=== PATIENT | female | born 1930 | race Caucasian/White ===

== ENCOUNTER 2018-02-16 03:08 | Inpatient (IN) ==
--- NOTE | 2018-02-16 03:25 | Emergency Department Note ---
Disposition Clinical Impression: Acute cholecystitis Abdominal pain Qualifiers: Abdominal location: right upper quadrant Qualified Code(s): R10.11 - Right upper quadrant pain UTI (urinary tract infection) Qualifiers: Urinary tract infection type: site unspecified Hematuria presence: without hematuria Qualified Code(s): N39.0 - Urinary tract infection, site not specified Disposition: Admitted As Inpatient Condition: Fair Time of Disposition: 05:25 General Adult HPI - General Stated complaint: leg swelling abd swelling Time Seen by Provider: 02/16/18 03:15 Source: EMS Mode of arrival: EMS Limitations: no limitations Nursing Notes Reviewed: Yes Vital Signs Reviewed: Yes - History of Present Illness HPI Narrative: Patient is an 87-year-old female who presents to [facility] ED with a chief complaint of difficulty breathing and lower extremity swelling. States that her abdomen hurts and that it is pushing up on her lungs make it hard for her to breathe. States her abdomen has been hurting over the last day. Denies any nausea, vomiting, fever or chills. Patient comes to us from the nursing facility. Sent in by the physician for the worsening difficulty breathing and worsening lower extremity edema. Her current status is DNR CC but states she would like lab work and imaging to figure out what is going on with her abdomen. Patient is normally nonambulatory due to reveals multiple falls and states her left leg cannot support her to walk anymore. She resides at a nursing facility. Denies any prior cardiac history or difficulty with her lungs. States she has had a prior appendectomy and partial hysterectomy. Onset (ago): day(s) (1) Location: abdomen Pain Severity: moderate Quality: aching Consistency: constant Improves with: nothing Worsens with: nothing Associated symptoms: Reports: nausea/vomiting, shortness of breath. Denies: chest pain, cough, fever/chills Treatments Prior to Arrival: none - Related Data Home Medications Medication Instructions Recorded Confirmed Ca/D3/Mag#11/Zinc/Adoption Social Worker/Braden/Bor 1 each PO BID 09/16/16 09/16/16 [Caltrate 600+D Plus Tablet] Ergocalciferol (VITAMIN D2) 400 unit PO DAILY 09/16/16 09/16/16 [Vitamin D] Previous Rx's Medication Instructions Recorded Lisinopril 10 mg PO DAILY #30 tablet 09/18/16 Allergies Allergy/AdvReac Type Severity Reaction Status Date / Time bacitracin Allergy Hives Verified 09/16/16 10:29 [From Neosporin ([id number])] Neomycin Allergy Hives Verified 09/16/16 10:29 [From Neosporin ([id number])] Penicillins Allergy Hives Verified 09/16/16 10:29 polymyxin B Allergy Hives Verified 09/16/16 10:29 [From Neosporin ([id number])] Sulfa (Sulfonamide Allergy SWELLING Verified 09/16/16 10:29 Antibiotics) Tetracycline AdvReac FAINTED Verified 09/16/16 10:29 All systems ED: reviewed and negative except as stated. Past Medical History - Past Medical History Attestation: Yes The following information was validated with the patient. Source: patient Medical history: Reports: GERD, osteoporosis Surgical history: Reports: appendectomy, hysterectomy, knee replacement (right) Psychiatric history: Reports: no psych history - Social History Smoking Status: Never smoker Smokeless Tobacco Status: No Alcohol use: Reports: none Drug use: Reports: none Physical Exam - General Limitations: no limitations General appearance: alert, in no apparent distress - Head Head exam: atraumatic, normocephalic, normal inspection - Eye Eye exam: Present: normal appearance, EOMI - ENT ENT exam: normal exam, normal oropharynx, mucous membranes moist - Neck Neck exam: Present: normal inspection, full ROM, trachea midline - Chest Chest inspection: Present: normal inspection, symmetric chest wall rise - Respiratory Respiratory exam: Present: normal lung sounds bilaterally - Cardiovascular Cardiovascular exam: Present: normal rhythm, tachycardia - Abdominal Exam Abdominal exam: Present: soft, tenderness, distention, diminished bowel sounds Abdominal tenderness: Present: diffuse, moderate - Extremities Exam Extremities exam: Present: normal inspection, full ROM. Absent: tenderness, pedal edema - Back Exam Back exam: Present: normal inspection, full ROM. Absent: tenderness - Neurological Exam Neurological exam: Present: alert, oriented X3 - Psychiatric Psychiatric exam: Present: normal affect, normal mood - Skin Skin exam: Present: warm, dry, intact, normal color Course Course Narrative: Patient seen and examined. Abdominal pain that is causing some difficulty breathing. She is DNR CC but agrees to imaging and lab work. Her abdominal exam does show some distention as well as fullness and pain with palpation diffusely but more so on the right side. Lab work, CT of the abdomen and pelvis ordered. We will go ahead and get a chest x-ray since she has some difficulty breathing as well as an EKG. We will start with 50 g of fentanyl to help with pain and 4 mg Zofran for nausea. - Reevaluation(s) Reevaluation #1: Labwork shows a leukocytosis of 16,000. CT of the abdomen and pelvis shows findings suspicious for acute cholecystitis. She has multiple gallstones as well as pericholecystic fluid. We will go ahead and start a dose of Mefoxin. I discussed with surgeon Dr. Damico who will see the patient in consultation. Patient also has signs of a urinary tract infection. I discussed with hospitalist who has accepted patient for admission. Time: 05:20 Medical Decision Making - Medical Records Medical records reviewed: Yes I reviewed the patient's medical records. - Lab Data Lab results reviewed: Yes I reviewed the patient's lab results. - Radiology Data Radiology results reviewed: Yes I reviewed the patient's radiology results. Abdomen/Pelvis CT 02/16/18 03:17 IMPRESSION: 1. Distended gallbladder, multiple gallstones and pericholecystic edema. Findings suspicious for cholecystitis. 2. Renal stones in bilateral renal pelvis with bilateral hydronephrosis and perinephric edema. Stone in the right renal pelvis measures up to 1 cm. Stone temp. In the left renal pelvis measuring up to 0.6 cm. 3. Bladder platt are slightly thickened - suspicious for cystitis. D/ / West Kaufman MD / West Kaufman MD Interpreting Provider: West Kaufman MD Chest X-Ray 02/16/18 03:18 IMPRESSION: 1. No focal airspace disease. 2. Cardiomegaly. D/ / West Kaufman MD / West Kaufman MD Interpreting Provider: West Kaufman MD - EKG Data EKG #1 EKG attestation: Yes I reviewed and interpreted this EKG. EKG results narrative: EKG done at 318 shows normal sinus rhythm with a rate of [address] elevation or depression. Left axis deviation.
[2018-02-16 03:32] LABS: Bilirubin,Urine Negative (Negative); Blood,Urine Moderate (Negative); Clarity,Urine Turbid (Clear); Color,Urine Yellow (Yellow); Glucose,Urine (UA) Normal (Normal); Ketones,Urine Negative (Negative); Leukocyte Esterase,Urine Large (Negative); Nitrite,Urine Negative (Negative); PH,Urine 6.5 pH Units (5.0-8.0); Protein,Urine 30 mg/dL (Neg-Trace); Specific Gravity,Urine 1.019 (1.010-1.025); Urobilinogen,Urine Normal (Normal)
[2018-02-16 03:32] LABS: Basophils # 0.1 K/mcL (0.0-0.2); Basophils % 0.4 %; Eosinophils # 0.1 K/mcL (0.0-0.6); Eosinophils % 0.3 %; Hematocrit 48.9 % (35.3-44.9); Hemoglobin 15.6 g/dL (11.5-15.4); Immature Granulocytes % 0.8 % (0-4); Lymphocytes # 1.8 K/mcL (0.6-4.6); Lymphocytes % 10.5 %; Mean Corpuscular HGB Conc 31.9 g/dL (31.6-35.5); Mean Corpuscular Hemoglobin 29.3 pg (28.0-33.3); Mean Corpuscular Volume 91.7 fL (83.0-100.0); Mean Platelet Volume 8.7 fL (9.4-12.4); Monocytes # 1.3 K/mcL (0.0-1.3); Monocytes % 7.5 %; Neutrophils # 13.6 K/mcL (1.6-8.9); Platelet Count 258 K/mcL (140-400); Red Blood Count 5.33 M/mcL (3.82-4.97); Red Cell Distribution Width 14.7 % (11.5-14.5); Segmented Neutrophils % 80.5 %
[2018-02-16 03:34] LABS: Bacteria,Urine Many per hpf (None-Few); Squamous Epithelial Cell,Urine Many per lpf (None-Few); WBC,Urine TNTC per hpf (0-3)
--- NOTE | 2018-02-16 03:49 | Emergency Department Note ---
Disposition Clinical Impression: Acute cholecystitis Abdominal pain Qualifiers: Abdominal location: right upper quadrant Qualified Code(s): R10.11 - Right upper quadrant pain UTI (urinary tract infection) Qualifiers: Urinary tract infection type: site unspecified Hematuria presence: without hematuria Qualified Code(s): N39.0 - Urinary tract infection, site not specified Disposition: Admitted As Inpatient Condition: Fair Abdominal Pain HPI - General Chief Complaint: ED Abdominal Pain Stated Complaint: leg swelling abd swelling Time Seen by Provider: 02/16/18 03:15 Source: EMS Mode of arrival: EMS - History of Present Illness Pain Scale: 5 - Related Data Home Medications Medication Instructions Recorded Confirmed Ca/D3/Mag#11/Zinc/Counter Top Assembler/Braden/Bor 1 each PO BID 09/16/16 02/16/18 [Caltrate 600+D Plus Tablet] Ergocalciferol (VITAMIN D2) 400 unit PO DAILY 09/16/16 02/16/18 [Vitamin D] Previous Rx's Medication Instructions Recorded Acetaminophen [Tylenol] 650 mg PO Q6HR PRN tablet 02/19/18 Docusate [Colace] 100 mg PO BID #60 capsule 02/19/18 Furosemide [Lasix] 20 mg PO DAILY PRN tablet 02/19/18 Ondansetron [Zofran] 4 mg IVP Q6H PRN vial 02/19/18 OxyCODONE/APAP 5/325 [Percocet 1 each PO Q6HR PRN 3 Days #10 02/19/18 5/325 MG] tablet Allergies Allergy/AdvReac Type Severity Reaction Status Date / Time bacitracin Allergy Hives Verified 09/16/16 10:29 [From Neosporin ([id number])] Neomycin Allergy Hives Verified 09/16/16 10:29 [From Neosporin ([id number])] Penicillins Allergy Hives Verified 09/16/16 10:29 polymyxin B Allergy Hives Verified 09/16/16 10:29 [From Neosporin ([id number])] Sulfa (Sulfonamide Allergy SWELLING Verified 09/16/16 10:29 Antibiotics) Tetracycline AdvReac FAINTED Verified 09/16/16 10:29 Abdominal Pain PMH - Past Medical History Medical history: Reports: GERD, osteoporosis Female Surgical History: Reports: appendectomy, hysterectomy Psychiatric history: Reports: no psych history - Social History Smoking status: Never smoker Alcohol use: Reports: none Drug use: Reports: none Physical Exam - General Limitations: no limitations General appearance: alert Course Vital Signs Temperature 98.5 F 02/16/18 03:14 Pulse Rate 113 02/16/18 03:14 Respiratory Rate 17 02/16/18 03:14 Blood Pressure 189/100 02/16/18 03:14 O2 Sat by Pulse Oximetry 95 02/16/18 03:14 Temperature 97.6 F 02/22/18 10:52 Pulse Rate 86 02/22/18 10:52 Respiratory Rate 15 02/22/18 10:52 Blood Pressure 125/79 02/22/18 10:52 O2 Sat by Pulse Oximetry 94 02/22/18 10:52 Oxygen Delivery Oxygen Delivery Nasal Cannula Abdominal Pain - Lab Data Result diagrams: 02/21/18 06:39 02/21/18 06:39 Lab Results 02/16/18 02/16/18 02/16/18 Range/Units 03:20 03:20 03:20 WBC 16.9 H (4.3-11.1) K/mcL RBC 5.33 H (3.82-4.97) M/mcL Hgb 15.6 H (11.5-15.4) g/dL Hct 48.9 H (35.3-44.9) % MCV 91.7 (83.0-100.0) fL MCH 29.3 (28.0-33.3) pg MCHC 31.9 (31.6-35.5) g/dL RDW 14.7 H (11.5-14.5) % Plt Count 258 (140-400) K/mcL MPV 8.7 L (9.4-12.4) fL Immature Gran % 0.8 (0-4) % Seg Neutrophils % 80.5 % Lymphocytes % 10.5 % Monocytes % 7.5 % Eosinophils % 0.3 % Basophils % 0.4 % Neutrophils # 13.6 H (1.6-8.9) K/mcL Lymphocytes # 1.8 (0.6-4.6) K/mcL Monocytes # 1.3 (0.0-1.3) K/mcL Eosinophils # 0.1 (0.0-0.6) K/mcL Basophils # 0.1 (0.0-0.2) K/mcL Sodium (136-145) mEq/L Potassium (3.5-5.1) mEq/L Chloride (98-107) mEq/L Carbon Dioxide (23-29) mEq/L BUN (8-23) mg/dL Creatinine (0.60-1.20) mg/dL Est GFR ( Amer) (> 60) Est GFR (Non-Af Amer) (> 60) BUN/Creatinine Ratio (6-26) Glucose (70-105) mg/dL Calculated Osmolality (280-300) Lactic Acid 1.1 (0.5-2.2) mmol/L Calcium (8.6-10.3) mg/dL Total Bilirubin (0.3-1.0) mg/dL Direct Bilirubin (0.0-0.2) mg/dL Indirect Bilirubin (0.0-1.2) mg/dL AST (13-39) Units/L ALT (7-52) Units/L Alkaline Phosphatase (34-104) Units/L Troponin I < 0.03 (< 0.04) ng/mL B-Natriuretic Peptide (Less than 100) pg/mL Serum Total Protein (6.4-8.9) g/dL Albumin (3.5-5.7) g/dL Globulin (2.4-3.5) g/dL Albumin/Globulin Ratio (1.1-2.2) Lipase (11-82) Units/L Urine Color (Yellow) Urine Clarity (Clear) Urine pH (5.0-8.0) pH Units Ur Specific [place] (1.010-1.025) Urine Protein (Neg-Trace) mg/dL Urine Glucose (UA) (Normal) mg/dL Urine Ketones (Negative) mg/dL Urine Blood (Negative) Urine Nitrite (Negative) Urine Bilirubin (Negative) Urine Urobilinogen (Normal) mg/dL Ur Leukocyte Esterase (Negative) Urine Microscopic RBC (0-3) per hpf Urine Microscopic WBC (0-3) per hpf Ur Squamous Epith Cells (None-Few) per lpf Urine Bacteria (None-Few) per hpf Hyaline Casts Urine Yeast Ur Culture Indicated? (NO) 02/16/18 02/16/18 02/16/18 Range/Units 03:20 03:20 03:26 WBC (4.3-11.1) K/mcL RBC (3.82-4.97) M/mcL Hgb (11.5-15.4) g/dL Hct (35.3-44.9) % MCV (83.0-100.0) fL MCH (28.0-33.3) pg MCHC (31.6-35.5) g/dL RDW (11.5-14.5) % Plt Count (140-400) K/mcL MPV (9.4-12.4) fL Immature Gran % (0-4) % Seg Neutrophils % % Lymphocytes % % Monocytes % % Eosinophils % % Basophils % % Neutrophils # (1.6-8.9) K/mcL Lymphocytes # (0.6-4.6) K/mcL Monocytes # (0.0-1.3) K/mcL Eosinophils # (0.0-0.6) K/mcL Basophils # (0.0-0.2) K/mcL Sodium 137 (136-145) mEq/L Potassium 4.5 (3.5-5.1) mEq/L Chloride 103 (98-107) mEq/L Carbon Dioxide 26 (23-29) mEq/L BUN 17 (8-23) mg/dL Creatinine 0.71 (0.60-1.20) mg/dL Est GFR ( Amer) > 60 (> 60) Est GFR (Non-Af Amer) > 60 (> 60) BUN/Creatinine Ratio 24 (6-26) Glucose 178 H (70-105) mg/dL Calculated Osmolality 290 (280-300) Lactic Acid (0.5-2.2) mmol/L Calcium 9.3 (8.6-10.3) mg/dL Total Bilirubin 0.7 (0.3-1.0) mg/dL Direct Bilirubin 0.2 (0.0-0.2) mg/dL Indirect Bilirubin 0.5 (0.0-1.2) mg/dL AST 20 (13-39) Units/L ALT 22 (7-52) Units/L Alkaline Phosphatase 82 (34-104) Units/L Troponin I (< 0.04) ng/mL B-Natriuretic Peptide 37 (Less than 100) pg/mL Serum Total Protein 7.5 (6.4-8.9) g/dL Albumin 4.0 (3.5-5.7) g/dL Globulin 3.5 (2.4-3.5) g/dL Albumin/Globulin Ratio 1.1 (1.1-2.2) Lipase 33 (11-82) Units/L Urine Color Yellow (Yellow) Urine Clarity Turbid A (Clear) Urine pH 6.5 (5.0-8.0) pH Units Ur Specific [place] 1.019 (1.010-1.025) Urine Protein 30 H (Neg-Trace) mg/dL Urine Glucose (UA) Normal (Normal) mg/dL Urine Ketones Negative (Negative) mg/dL Urine Blood Moderate H (Negative) Urine Nitrite Negative (Negative) Urine Bilirubin Negative (Negative) Urine Urobilinogen Normal (Normal) mg/dL Ur Leukocyte Esterase Large H (Negative) Urine Microscopic RBC 5-15 H (0-3) per hpf Urine Microscopic WBC TNTC H (0-3) per hpf Ur Squamous Epith Cells Many H (None-Few) per lpf Urine Bacteria Many H (None-Few) per hpf Hyaline Casts Test Not Performed Urine Yeast Test Not Performed Ur Culture Indicated? NO. A (NO) Attestation Statement - Attestation Attestation: I examined this patient and my medical decision-making was reviewed with the Resident Physician. I agree with the documented findings, disposition and treatment plan as described except to the extent set forth below. Findings consistent with lower extremity edema as well as abdominal edema. We will get basic labs as well as BNP and chest x-ray as well as check urinalysis. Disposition will be pending results of laboratory analyses as well as imaging
[2018-02-16 04:28] LABS: Alanine Aminotransferase 22 Units/L (7-52); Albumin/Globulin Ratio 1.1 (1.1-2.2); Alkaline Phosphatase 82 Units/L (34-104); Aspartate Amino Transferase 20 Units/L (13-39); BUN/Creatinine Ratio 24 (6-26); Bilirubin,Direct 0.2 mg/dL (0.0-0.2); Bilirubin,Indirect 0.5 mg/dL (0.0-1.2); Bilirubin,Total 0.7 mg/dL (0.3-1.0); Blood Urea Nitrogen 17 mg/dL (8-23); Calcium 9.3 mg/dL (8.6-10.3); Carbon Dioxide 26 mEq/L (23-29); Chloride 103 mEq/L (98-107); Globulin 3.5 g/dL (2.4-3.5); Glucose 178 mg/dL (70-105); Lipase 33 Units/L (11-82); Osmolality,Calculated 290 (280-300); Potassium 4.5 mEq/L (3.5-5.1); Sodium 137 mEq/L (136-145); Total Protein 7.5 g/dL (6.4-8.9); eGFR For African Americans > 60 (> 60); eGFR For Non-African Americans > 60 (> 60)
[2018-02-16] MEDS ORDERED: cefTRIAXone 2,000 MG in 0.9 % Sodium Chloride Mini Bag 100 ML IVPB ONE (05:00)
[2018-02-16] MEDS ORDERED: cefOXitin 1,000 MG in 0.9 % Sodium Chloride Mini Bag 100 ML IVPB ONE (05:05)
[2018-02-16] MEDS ORDERED: *HR* FentaNYL (PF) 100 MCG/2 ML VIAL IVP ONE (05:17)
[2018-02-16] MEDS ORDERED: Ondansetron 4 MG/2 ML VIAL IVP ONE (05:18)
[2018-02-16] MEDS ORDERED: Naloxone 0.4 MG/ML INJ IVP PRN (06:21)
[2018-02-16] MEDS ORDERED: OXYCODONE Oral CONC 10 MG/0.5 ML ORAL.SYG SL PRN ×2 (06:21)
[2018-02-16] MEDS ORDERED: Acetaminophen 325 MG TABLET PO PRN (06:21)
[2018-02-16] MEDS ORDERED: Ondansetron 4 MG/2 ML VIAL IVP PRN (06:21)
--- NOTE | 2018-02-16 07:02 | Internal Med History&Physical ---
Date of Encounter: 02/16/18 Time of Encounter: 05:00 Internal Medicine - H&P: HPI Chief complaint: Right upper quadrant discomfort Admitted From: Long-term Nursing Facility Plans for Post Hospital Care: Transfer [facility] [facility] History of present illness: Ms. Rodgers is a 87 year old female sent from long term for right upper quadrant discomfort. 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 Patient said she has right upper quadrant discomfort since yesterday morning. Patient also complaining low fever with chills. Patient denies nausea, vomiting. Patient denies chest pain. Patient has a mild shortness of breath and bilateral leg swelling, but she said it was for a while. In the emergency room, patient was found leukocytosis, CT abdomen shows gallbladder stones with suspect cholecystitis. Patient was also found UTI and bilateral kidney stone with hydronephrosis. Patient denies dysuria, burning, or urgency. On long term transfer documentation, patient has an order off DNR CC. However, patient is AAO 3, I have discussed CODE STATUS with patient. She clearly told me she does not want CPR, but accept intubation, surgery if necessary, antibiotics, and IV fluid. I have placed her CODE STATUS as DNR CCA per patient's wish. Past Med Surg Social Fam HX - Past Medical History Medical history: GERD, osteoporosis Psychiatric history: no psych history - Past Surgical History Surgical History: appendectomy, hysterectomy, knee replacement (right) - Social History Smoking Status: Never smoker Smokeless Tobacco Status: No Alcohol use: none Drug use: none - Family History Father Living Status: Hx Family Cardiac Disorders: No Hx Family Respiratory Disorders: No Hx Family Cancer: Yes Internal Medicine - H&P: Meds Ca/D3/Mag#11/Zinc/Voting Machine Repairer/Braden/Bor [Caltrate 600+D Plus Tablet] 1 each PO BID [History] Ergocalciferol (VITAMIN D2) [Vitamin D] 400 unit PO DAILY 09/16/16 [History] Lisinopril 10 mg PO DAILY #30 tablet 09/18/16 [Rx] 3 Allergy/AdvReac Type Severity Reaction Status Date / Time bacitracin Allergy Hives Verified 09/16/16 10:29 [From Neosporin ([id number])] Neomycin Allergy Hives Verified 09/16/16 10:29 [From Neosporin ([id number])] Penicillins Allergy Hives Verified 09/16/16 10:29 polymyxin B Allergy Hives Verified 09/16/16 10:29 [From Neosporin ([id number])] Sulfa (Sulfonamide Allergy SWELLING Verified 09/16/16 10:29 Antibiotics) Tetracycline AdvReac FAINTED Verified 09/16/16 10:29 All Systems PM: A 10-system review of systems was performed and is negative for pertinent findings except as documented above in the HPI. - Constitutional Vitals: Temp Pulse Resp BP Pulse Ox 98.5 F 90 18 137/61 94 02/16/18 03:14 02/16/18 05:41 02/16/18 05:41 02/16/18 05:41 02/16/18 05:41 General appearance: Present: A&O X 3, no acute distress, answers questions appropriately - Head Head exam: Present: atraumatic, normocephalic - Eye Eye exam: Present: PERRL, conjuntiva pink, sclera anicteric Pupils: Present: PERRL - Neck Neck exam general surgery: Present: supple, trachea midline. Absent: lymphadenopathy - Respiratory Respiratory exam: Present: CTAB. Absent: accessory muscle use, rales, rhonchi, wheezes - Cardiovascular Cardiovascular exam: Present: RRR, +S1, +S2. Absent: diastolic murmur, gallop, rubs, systolic murmur - GI/Abdominal GI/Abdominal exam: Present: normal bowel sounds, soft, tenderness (Tenderness on right upper quadrant, with guarding), no peritoneal signs. Absent: distended - Extremities Exam Extremities exam: Present: pedal edema (bilaterally), warm, radial pulses palpable and symmetrical. Absent: calf tenderness, cyanotic Additional comments: Contracture of left hand and bilateral feet - Neurological Exam Neurological exam: Present: CN II-XII intact, oriented X3, no focal deficits. Absent: pronater drift, facial droop, speech deficit - Skin Skin exam: Present: dry, intact Internal Med - H&P Results - Labs CBC & Chem 7: 02/16/18 03:20 02/16/18 03:20 - Assessment and plan (1) Cholelithiasis Current Visit: Yes Status: Acute Assessment and plan: Patient has right upper quadrant discomfort, chills, leukocytosis. Tenderness on exam. CT abdomen shows cholecystitis with gallstone. - Place patient on nothing by mouth, IV fluid, pain medication as needed - Place patient on Cipro and Flagyl IV - Consult surgery for further management. Qualifiers: Cholelithiasis location: gallbladder Cholecystitis presence: with cholecystitis Cholecystitis acuity: acute Biliary obstruction: without biliary obstruction Qualified Code(s): K80.00 - Calculus of gallbladder with acute cholecystitis without obstruction (2) Renal stone Current Visit: Yes Status: Acute Assessment and plan: Patient has bilateral renal pelvis stone with hydronephrosis. Renal function is wnl. Will consult urology. (3) Hydronephrosis Current Visit: Yes Status: Acute Assessment and plan: Management as above. Antibiotic to cover UTI. Qualifiers: Hydronephrosis type: with renal calculous obstruction Qualified Code(s): N13.2 - Hydronephrosis with renal and ureteral calculous obstruction (4) Acute cholecystitis Current Visit: Yes Status: Acute Assessment and plan: Management as above (5) UTI (urinary tract infection) Current Visit: Yes Status: Acute Assessment and plan: Urinalysis shows UTI. Patient is on Cipro and Flagyl. Follow urine culture. Qualifiers: Urinary tract infection type: site unspecified Hematuria presence: without hematuria Qualified Code(s): N39.0 - Urinary tract infection, site not specified (6) DVT prophylaxis Current Visit: No Status: Acute Assessment and plan: EPCD (7) Hypertension Current Visit: No Status: Chronic Assessment and plan: Continue home medications Qualifiers: Hypertension type: essential hypertension Qualified Code(s): I10 - Essential (primary) hypertension (8) Leg swelling Current Visit: Yes Status: Acute Assessment and plan: Bilateral leg swelling with mild shortness of breath. Need to rule out CHF. Chest x-ray shows no signs of pulmonary congestion. Will check BNP and echocardiogram. - Time Spent With Patient Total time spent is greater than 50% in coordination of care (as documented) at patient's floor/unit and/or counseling patient:
--- NOTE | 2018-02-16 10:41 | Urology - Consult Note ---
Date of Encounter: 02/16/18 Time of Encounter: 12:59 - Assessment and Plan (1) Renal stones Current Visit: Yes Status: Acute (2) Hydronephrosis Current Visit: Yes Status: Acute Assessment and plan: I personally reviewed the CT images. It appears that the bilateral renal pelvis stones are likely causing some obstruction indicated by the hydronephrosis. This is potentially a reason for her recent illness. General surgery consult is pending and need to also consider cholecystitis as a separate source of her recent illness. I feel the approach for the renal pelvis stones and hydronephrosis is to proceed with bilateral ureteral stent placement which would then require a staged bilateral ureteroscopic stone extraction in the future. The patient appears stable at this time and I do not feel that the procedure is urgent. We will await the Gen. surgery consultation because if they feel she requires surgical intervention for the cholecystitis will likely perform a concomitant procedure if possible. We also briefly discussed the fact that she is DNR. A palliative nonprocedural approach to these stones would place her at increased risk for urosepsis, significant morbidity and . Qualifiers: Hydronephrosis type: with renal calculous obstruction Qualified Code(s): N13.2 - Hydronephrosis with renal and ureteral calculous obstruction Urology CN:HPI Consult date: 02/16/18 Reason for consult Urology: Hydronephrosis History of present illness: pt with a hx of urolithiasis. stone extraction a few years ago by Dr Almanzar. presents to ER with acute illness, abd pain. minimal LUTS. CT scan at admission reveals bilateral renal pelvis stones with bilateral hydronephrosis. She also has evidence of cholecystitis. White cell count to 17,000. She has complained of malaise as well. Past Med Surg Social Fam HX - Past Medical History Medical history: GERD, osteoporosis Psychiatric history: no psych history - Past Surgical History Surgical History: appendectomy, hysterectomy, knee replacement (right) - Social History Smoking Status: Never smoker Smokeless Tobacco Status: No Alcohol use: none Drug use: none - Family History Father Living Status: Hx Family Cardiac Disorders: No Hx Family Respiratory Disorders: No Hx Family Cancer: Yes Medications and Allergies Ca/D3/Mag#11/Zinc/Final Inspector And Tester/Braden/Bor [Caltrate 600+D Plus Tablet] 1 each PO BID [History] Ergocalciferol (VITAMIN D2) [Vitamin D] 400 unit PO DAILY 09/16/16 [History] 3 Allergy/AdvReac Type Severity Reaction Status Date / Time bacitracin Allergy Hives Verified 09/16/16 10:29 [From Neosporin ([id number])] Neomycin Allergy Hives Verified 09/16/16 10:29 [From Neosporin ([id number])] Penicillins Allergy Hives Verified 09/16/16 10:29 polymyxin B Allergy Hives Verified 09/16/16 10:29 [From Neosporin ([id number])] Sulfa (Sulfonamide Allergy SWELLING Verified 09/16/16 10:29 Antibiotics) Tetracycline AdvReac FAINTED Verified 09/16/16 10:29 Review of Systems - Constitutional fatigue, fever(s), malaise - EENT Nose, mouth and throat: dizziness - Cardiovascular no chest pain - Respiratory no cough - Gastrointestinal abdominal pain, nausea - Genitourinary Genitourinary: hematuria, no dysuria - Musculoskeletal back pain - Integumentary no erythema - Neurological no confusion - Psychiatric as per HPI, no anxiety - Hematologic/Lymphatic no easy bleeding Exam Initial Vital Signs Temp Pulse Resp BP Pulse Ox 98.5 F 113 17 189/100 95 02/16/18 03:14 02/16/18 03:14 02/16/18 03:14 02/16/18 03:14 02/16/18 03:14 - General physical appearance Present: no distress, chronically ill - Eyes Present: PERRL, conjunctiva is clear - ENT Present: normal nares, no hearing loss - Neck Present: no masses, no lymphadenopathy - Respiratory Present: normal respiratory effort - Cardiovascular Cardiovascular exam IM: RRR - Abdomen Abdomen: Present: soft. Absent: masses, suprapubic tenderness - Integumentary Present: no rash - Neurologic Present: normal coordination. Absent: disoriented, confused Urology Results - Labs 02/16/18 03:20 02/16/18 03:20 Abnormal lab results WBC 16.9 K/mcL (4.3-11.1) H 02/16/18 03:20 RBC 5.33 M/mcL (3.82-4.97) H 02/16/18 03:20 Hgb 15.6 g/dL (11.5-15.4) H 02/16/18 03:20 Hct 48.9 % (35.3-44.9) H 02/16/18 03:20 RDW 14.7 % (11.5-14.5) H 02/16/18 03:20 MPV 8.7 fL (9.4-12.4) L 02/16/18 03:20 Neutrophils # 13.6 K/mcL (1.6-8.9) H 02/16/18 03:20 Glucose 178 mg/dL (70-105) H 02/16/18 03:20 Urine Clarity Turbid (Clear) A 02/16/18 03:26 Urine Protein 30 mg/dL (Neg-Trace) H 02/16/18 03:26 Urine Blood Moderate (Negative) H 02/16/18 03:26 Ur Leukocyte Esterase Large (Negative) H 02/16/18 03:26 Urine Microscopic RBC 5-15 per hpf (0-3) H 02/16/18 03:26 Urine Microscopic WBC TNTC per hpf (0-3) H 02/16/18 03:26 Ur Squamous Epith Cells Many per lpf (None-Few) H 02/16/18 03:26 Urine Bacteria Many per hpf (None-Few) H 02/16/18 03:26 Ur Culture Indicated? NO. (NO) A 02/16/18 03:26 All other labs normal. Consult Discharge Plan - Plan Referrals: NONE,PCP [Primary Care Provider] -
--- NOTE | 2018-02-16 11:57 | Internal Med Progress Note ---
Date of Encounter: 02/16/18 Time of Encounter: 10:20 - Assessment and plan (1) Acute cholecystitis Current Visit: Yes Status: Acute Assessment and plan: CT abdomen shows cholecystitis with gallstone. NPO for now waiting on surgery eval Pt would like to go for surgery if she needs she may get benefit with per cutaneous cath drainage will talk to surgery about this cont empirical abx Cipro and Flagyl (2) Cholelithiasis Current Visit: Yes Status: Acute Qualifiers: Cholelithiasis location: gallbladder Cholecystitis presence: with cholecystitis Cholecystitis acuity: acute Biliary obstruction: without biliary obstruction Qualified Code(s): K80.00 - Calculus of gallbladder with acute cholecystitis without obstruction (3) DVT prophylaxis Current Visit: No Status: Acute Assessment and plan: EPCD (4) Hypertension Current Visit: No Status: Chronic Assessment and plan: stable and well controlled with no meds Qualifiers: Hypertension type: essential hypertension Qualified Code(s): I10 - Essential (primary) hypertension (5) UTI (urinary tract infection) Current Visit: Yes Status: Acute Assessment and plan: Urinalysis shows UTI Patient is on Cipro and Flagyl Follow urine culture. Qualifiers: Urinary tract infection type: site unspecified Hematuria presence: without hematuria Qualified Code(s): N39.0 - Urinary tract infection, site not specified (6) Renal stone Current Visit: Yes Status: Acute Assessment and plan: Patient has bilateral renal pelvis stone with hydronephrosis. Renal function is wnl. Urology consulted (7) Hydronephrosis Current Visit: Yes Status: Acute Assessment and plan: Antibiotic to cover UTI Cont ureña Qualifiers: Hydronephrosis type: with renal calculous obstruction Qualified Code(s): N13.2 - Hydronephrosis with renal and ureteral calculous obstruction (8) Leg swelling Current Visit: Yes Status: Acute Assessment and plan: Bilateral leg swelling with mild shortness of breath. Need to rule out CHF. Chest x-ray shows no signs of pulmonary congestion. Echo -P - Time Spent With Patient Total time spent is greater than 50% in coordination of care (as documented) at patient's floor/unit and/or counseling patient: - Subjective Interval history: Ms. Rodgers is a 87 year old female sent from skilled nursing for right upper quadrant discomfort. 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 Patient said she has right upper quadrant discomfort since yesterday morning. Patient also complaining low fever with chills. Patient has a mild shortness of breath and bilateral leg swelling, but she said it was for a while. In the emergency room, patient was found leukocytosis, CT abdomen shows gallbladder stones with suspect cholecystitis. Patient was also found UTI and bilateral kidney stone with hydronephrosis. Patient denies dysuria, burning, or urgency. Pt states she still has RUQ abd pain. She denied any N/V. She is alert, awake and O x 3. She would like to go for surgery if she needs. - Constitutional Vitals: Temp Pulse Resp BP Pulse Ox 98.7 F 89 20 134/63 96 02/16/18 09:02 02/16/18 09:02 02/16/18 09:02 02/16/18 09:02 02/16/18 09:02 General appearance: Present: A&O X 3, no acute distress, answers questions appropriately - Head Head exam: Present: atraumatic, normal inspection - Neck Neck exam general surgery: Present: supple - Respiratory Respiratory exam: Present: decreased breath sounds. Absent: rales, respiratory distress, rhonchi, wheezes - Cardiovascular Cardiovascular exam: Present: +S1, +S2. Absent: tachycardia - GI/Abdominal GI/Abdominal exam: Present: normal bowel sounds, soft, tenderness (RUQ tenderness). Absent: rebound, rigid - Extremities Exam Extremities exam: Present: pedal edema (2+). Absent: calf tenderness, tenderness - Back Exam Back exam: Absent: CVA tenderness (L), CVA tenderness (R) - Neurological Exam Neurological exam: Present: alert, oriented X3 Internal Medicine: Result - Labs CBC & Chem 7: 02/16/18 03:20 02/16/18 03:20 Consult Discharge Plan - Plan Referrals: NONE,PCP [Primary Care Provider] -
[2018-02-16] MEDS: D5% in 0.45% NACL 1,000 ML IVC SCH (12:40)
[2018-02-16] MEDS: MetroNIDAZOLE 500 MG/100 ML 500 MG/100 ML BAG IVPB SCH ×2 (14:26→16:32)
--- NOTE | 2018-02-16 17:30 | General Surgery Consult Note ---
Date of Encounter: 02/16/18 Time of Encounter: 13:30 History of Present Illness Reason for consult: abdominal pain Requesting physician: Krystal Hernandez History of present illness: Surgical consult placed to see this 87-year-old resident of a local [facility] after being transferred to [facility] ED for further evaluation difficulty breathing and lower extremity swelling. Patient was also complaining of abdominal pain which was exacerbating her difficulty in breathing. Despite the pain, the patient denied any nausea, vomiting, fevers, or chills. Laboratories were notable for leukocytosis of 16.9, hemoglobin 15.6, hematocrit 48.9. Neutrophils 13.6%. Electrolytes, BUN, creatinine were within normal limits. Lactic acid 1.1; bilirubin and LFTs within normal limits. CT abdomen and pelvis was notable for partial atelectasis of bilateral lower lobe; distended gallbladder with gallstones, borderline gallbladder wall thickening and trace pericholecystic edema. The patient has significant bilateral renal stones as well as bilateral hydronephrosis and perinephric edema. The patient is restricted to her bed; there is a history of multiple falls and she is no longer active out of bed. It is noted that the patient's CODE STATUS is DNR CC The patient is awake, alert, and mentally intact despite the generalized degeneration/deconditioning of her body Surgical history includes appendectomy, partial hysterectomy, right total knee Allergies include Neosporin, neomycin, polymyxin (from [id number]); all "cillins". Sulfa, tetracycline Physical examination: Elderly frail female resting comfortably in her hospital bed. At the time of my bedside visit, the patient indicates that her symptoms at the time of presentation to the emergency department have improved. Skin is warm, without obvious jaundice. Bilateral lower extremity edema is evident Lungs: Clear; inspiration is limited but not apparently due to pain Cardiac: Regular rate and did not detect any murmurs Abdomen: Significant tenderness right upper quadrant subcostal midclavicular line consistent with gallbladder tenderness. Active bowel sounds were noted. CT abdomen/pelvis was reviewed with [facility]. On this review, the pericholecystic fluid was not readily detected as described in the dictated report. The left hydronephrosis appeared more pronounced than the right. No obvious perinephric stranding but stranding at the left renal hilum and proximal ureter. USGB had been ordered and completed since my bedside visit wih the patient. These images were also reviewed with [facility]. Stones and minimal wall thickening was identified but no clear-cut pericholecystic fluid was identified. A complete dictation is still pending. Following examination of the patient and obtaining historical details, lengthy discussion ensued with the patient and her daughter who was in attendance. Surgical intervention such as cholecystectomy would necessitate the patient be intubated and anesthetized. The patient's markedly debilitated state increases the risk of respiratory failure, postoperative pneumonia and prolonged mechanical ventilation. Other risks include hemorrhage, infection, intra- abdominal abscess, injury to adjacent ducts, vessels, organs, or bowel; cardiac dysrhythmia, GA; and stroke. The patient had previously established her CODE STATUS as DNR CC. This was discussed in detail as it is possible to provide comfort care without surgery. Alternative to cholecystectomy includes cholecystostomy tube. I encouraged the patient and her granddaughter to discuss the treatment options with the patient to determine/decide how she wishes to proceed. An 87 yo does not typically tolerate the stresses and fluid shifts related to surgery and post op recovery could be protracted. These interventions may be beyond what the patient wishes to undergo and could result in her . In addition to the hepatobiliary findings are the bilateral renal findings. I have spoken to Dr Paez, [facility], who has evaluated the patient's bilateral nephrolithiasis. An HB scan has been recommended by [facility]. This will be ordered for the AM. Further discussion with the patient and Dr Paez is planned following completion of the HB scan. Past Med Surg Social Fam HX - Past Medical History Medical history: GERD, osteoporosis Psychiatric history: no psych history - Past Surgical History Surgical History: appendectomy, hysterectomy, knee replacement (right) - Social History Smoking Status: Never smoker Smokeless Tobacco Status: No Alcohol use: none Drug use: none - Family History Father Living Status: Hx Family Cardiac Disorders: No Hx Family Respiratory Disorders: No Hx Family Cancer: Yes Medications and Allergies Ca/D3/Mag#11/Zinc/Client Strategist/Braden/Bor [Caltrate 600+D Plus Tablet] 1 each PO BID [History] Ergocalciferol (VITAMIN D2) [Vitamin D] 400 unit PO DAILY 09/16/16 [History] 3 Allergy/AdvReac Type Severity Reaction Status Date / Time bacitracin Allergy Hives Verified 09/16/16 10:29 [From Neosporin ([id number])] Neomycin Allergy Hives Verified 09/16/16 10:29 [From Neosporin ([id number])] Penicillins Allergy Hives Verified 09/16/16 10:29 polymyxin B Allergy Hives Verified 09/16/16 10:29 [From Neosporin ([id number])] Sulfa (Sulfonamide Allergy SWELLING Verified 09/16/16 10:29 Antibiotics) Tetracycline AdvReac FAINTED Verified 09/16/16 10:29 Review of Systems All systems PM: The remainder of the systems were reviewed and are negative General Surgery Exam Initial Vital Signs Temp Pulse Resp BP Pulse Ox 98.5 F 113 17 189/100 95 02/16/18 03:14 02/16/18 03:14 02/16/18 03:14 02/16/18 03:14 02/16/18 03:14 Exam Initial Vital Signs Temp Pulse Resp BP Pulse Ox 98.5 F 113 17 189/100 95 02/16/18 03:14 02/16/18 03:14 02/16/18 03:14 02/16/18 03:14 02/16/18 03:14 Results - Labs 02/16/18 03:20 02/16/18 03:20 Abnormal lab results WBC 16.9 K/mcL (4.3-11.1) H 02/16/18 03:20 RBC 5.33 M/mcL (3.82-4.97) H 02/16/18 03:20 Hgb 15.6 g/dL (11.5-15.4) H 02/16/18 03:20 Hct 48.9 % (35.3-44.9) H 02/16/18 03:20 RDW 14.7 % (11.5-14.5) H 02/16/18 03:20 MPV 8.7 fL (9.4-12.4) L 02/16/18 03:20 Neutrophils # 13.6 K/mcL (1.6-8.9) H 02/16/18 03:20 Glucose 178 mg/dL (70-105) H 02/16/18 03:20 Urine Clarity Turbid (Clear) A 02/16/18 03:26 Urine Protein 30 mg/dL (Neg-Trace) H 02/16/18 03:26 Urine Blood Moderate (Negative) H 02/16/18 03:26 Ur Leukocyte Esterase Large (Negative) H 02/16/18 03:26 Urine Microscopic RBC 5-15 per hpf (0-3) H 02/16/18 03:26 Urine Microscopic WBC TNTC per hpf (0-3) H 02/16/18 03:26 Ur Squamous Epith Cells Many per lpf (None-Few) H 02/16/18 03:26 Urine Bacteria Many per hpf (None-Few) H 02/16/18 03:26 Ur Culture Indicated? NO. (NO) A 02/16/18 03:26 All other labs normal. Consult Discharge Plan - Plan Referrals: NONE,PCP [Primary Care Provider] -
--- NOTE | 2018-02-16 20:35 | Electrocardiograph Report ---
[address] [address] Test Date: 2018-02-16 Pat Name: Carolina Rodgers Department: [id number] Room: 3B Gender: F Shank Taper: YONI : 1930 Requested By: Krystal Hernandez Order Number: [id number] Reading MD: Jose Villegas Measurements Intervals [place] Rate: 97 P: 44 MO: 209 QRS: -40 QRSD: 88 T: 26 QT: 355 QTc: 409 Interpretive Statements SINUS RHYTHM MARKED LEFT AXIS DEVIATION BASELINE ARTIFACT Electronically Signed On 02-16-2018 20:33:38 EDT by Jose Villegas
[2018-02-17] MEDS: MetroNIDAZOLE 500 MG/100 ML 500 MG/100 ML BAG IVPB SCH ×4 (00:38→23:37)
[2018-02-17] MEDS: D5% in 0.45% NACL 1,000 ML IVC SCH ×2 (03:10→22:35)
[2018-02-17 08:06] LABS: Basophils # 0.1 K/mcL (0.0-0.2); Basophils % 0.3 %; Eosinophils % 0.2 %; Hematocrit 37.2 % (35.3-44.9); Lymphocytes # 1.8 K/mcL (0.6-4.6); Mean Corpuscular HGB Conc 33.1 g/dL (31.6-35.5); Mean Corpuscular Hemoglobin 31.1 pg (28.0-33.3); Mean Corpuscular Volume 93.9 fL (83.0-100.0); Mean Platelet Volume 9.2 fL (9.4-12.4); Monocytes # 2.1 K/mcL (0.0-1.3); Monocytes % 10.5 %; Neutrophils # 15.5 K/mcL (1.6-8.9); Platelet Count 224 K/mcL (140-400); Red Blood Count 3.96 M/mcL (3.82-4.97); Red Cell Distribution Width 14.6 % (11.5-14.5)
[2018-02-17 09:25] LABS: Hemoglobin 12.3 g/dL (11.5-15.4)
[2018-02-17 10:04] LABS: Alanine Aminotransferase 31 Units/L (7-52); Albumin 2.7 g/dL (3.5-5.7); Alkaline Phosphatase 56 Units/L (34-104); Aspartate Amino Transferase 23 Units/L (13-39); BUN/Creatinine Ratio 26 (6-26); Blood Urea Nitrogen 22 mg/dL (8-23); Calcium 8.1 mg/dL (8.6-10.3); Carbon Dioxide 25 mEq/L (23-29); Chloride 104 mEq/L (98-107); Globulin 2.6 g/dL (2.4-3.5); Glucose 181 mg/dL (70-105); Osmolality,Calculated 286 (280-300); Potassium 3.4 mEq/L (3.5-5.1); Sodium 134 mEq/L (136-145); Total Protein 5.3 g/dL (6.4-8.9); eGFR For African Americans > 60 (> 60); eGFR For Non-African Americans > 60 (> 60)
--- NOTE | 2018-02-17 14:47 | General Surgery Progress Note ---
Date of Encounter: 02/17/18 Time of Encounter: 12:50 Subjective Patient reports: still having pain Narrative: General Surgery Persistent right upper quadrant abdominal pain and tenderness. Maximum temperature 99.5; currently 98.7, pulse 85, respirations 14, blood pressure 130/62. SPO2 on 2 L/m nasal cannula 97% HB scan completed this morning was reviewed with [facility]. Findings include radiotracer seen within the liver and biliary tree; activity seen within the small bowel but not within the gallbladder. This is consistent with acute obstruction of the cystic duct or acute cholecystitis. The patient does not wish to risk intubation or prolonged mechanical ventilation. She is aware that this precludes cholecystectomy. Cholecystostomy tube is therefore recommended. I have discussed this with Dr. Awais Rizvi, [facility] Payton Lakhani, PRINTING MECHANIST aware. Dr Alberto Paez also informed Objective Vital Signs - Last 8 Hours Temp Pulse Resp BP Pulse Ox 02/17/18 11:20 98.7 F 85 14 130/62 97 02/17/18 07:14 98.9 F 78 14 92/53 95 Intake and Output 02/16/18 02/17/18 02/17/18 23:59 07:59 15:59 Intake Total 1500 / 1500 100 / 100 Balance 1500 / 1500 100 / 100 Intake: IV Fluids 1500 / 1500 100 / 100 D5% And 0.45% Nacl 1000 Ml Bag 1000 / 1000 1,000 ML @ 90 mls/hr IVC . Q11H7M YADIRA Rx#:[id number] Cipro Premix 400 MG/200 ML 400 400 / 400 mg In 200 ml @ 200 mls/hr IVPB Q12HR YADIRA Rx#:[id number] Flagyl Premix 500 MG/100 ML 500 100 / 100 100 / 100 mg In 100 ml @ 100 mls/hr IVPB Q8HR YADIRA Rx#:[id number] Oral 0 / 0 Other: Meal NPO Stool Size Smear Stool Consistency soft Stool Characteristics Normal for Patient Stool Color Brown # Urine Diapers 1 # Bowel Movements 1 Weight 65 kg Blood Glucose* 142 Patient Weight 02/17/18 23:59 Weight 65 kg - Labs 02/17/18 07:18 02/17/18 07:18 Diabetes panel 02/17/18 Range/Units 07:18 Sodium 134 L (136-145) mEq/L Potassium 3.4 L (3.5-5.1) mEq/L Chloride 104 (98-107) mEq/L Carbon Dioxide 25 (23-29) mEq/L BUN 22 (8-23) mg/dL Creatinine 0.86 (0.60-1.20) mg/dL Glucose 181 H (70-105) mg/dL Calcium 8.1 L (8.6-10.3) mg/dL AST 23 (13-39) Units/L ALT 31 (7-52) Units/L Alkaline Phosphatase 56 (34-104) Units/L Albumin 2.7 L (3.5-5.7) g/dL Calcium panel 02/17/18 Range/Units 07:18 Calcium 8.1 L (8.6-10.3) mg/dL Albumin 2.7 L (3.5-5.7) g/dL Pituitary panel 02/17/18 Range/Units 07:18 Sodium 134 L (136-145) mEq/L Potassium 3.4 L (3.5-5.1) mEq/L Chloride 104 (98-107) mEq/L Carbon Dioxide 25 (23-29) mEq/L BUN 22 (8-23) mg/dL Creatinine 0.86 (0.60-1.20) mg/dL Glucose 181 H (70-105) mg/dL Calcium 8.1 L (8.6-10.3) mg/dL Adrenal panel 02/17/18 Range/Units 07:18 Sodium 134 L (136-145) mEq/L Potassium 3.4 L (3.5-5.1) mEq/L Chloride 104 (98-107) mEq/L Carbon Dioxide 25 (23-29) mEq/L BUN 22 (8-23) mg/dL Creatinine 0.86 (0.60-1.20) mg/dL Glucose 181 H (70-105) mg/dL Calcium 8.1 L (8.6-10.3) mg/dL Total Bilirubin 1.0 (0.3-1.0) mg/dL AST 23 (13-39) Units/L ALT 31 (7-52) Units/L Alkaline Phosphatase 56 (34-104) Units/L Albumin 2.7 L (3.5-5.7) g/dL Consult Discharge Plan - Plan Referrals: NONE,PCP [Primary Care Provider] -
[2018-02-17 14:49] LABS: INR 1.4; Prothrombin Time 15.6 Seconds (9.4-12.1)
--- NOTE | 2018-02-17 16:46 | Urology Progress Note ---
Date of Encounter: 02/17/18 Time of Encounter: 16:43 - Assessment and Plan (1) Renal stones Current Visit: Yes Status: Acute (2) Hydronephrosis Current Visit: Yes Status: Acute Assessment and plan: Discussed the case with Dr. Damico. No further plans for general surgery intervention. I again discussed with the patient proceeding with bilateral ureteral stent placement if she desired intervention for the renal/proximal ureteral stones. Per my conversation with her and her granddaughter yesterday, they were going to consider observation because of her comorbidities and DNR status. She wants to avoid general anesthesia. Future kidney stone extraction would require general anesthesia. We again discussed that the stones could cause urosepsis in significant illness in the future. At this point she is willing to accept this risk. We will likely observe but we will rediscuss tomorrow. Qualifiers: Hydronephrosis type: with renal calculous obstruction Qualified Code(s): N13.2 - Hydronephrosis with renal and ureteral calculous obstruction Progress Note Subjective: still having pain Narrative: Patient states she does not feel well. She has pain under her right rib cage. Gallbladder tube placed today by IR. Reports no flank discomfort consistent with kidney stone. Objective Initial Vital Signs Temp Pulse Resp BP Pulse Ox 98.5 F 113 17 189/100 95 02/16/18 03:14 02/16/18 03:14 02/16/18 03:14 02/16/18 03:14 02/16/18 03:14 - General physical appearance Present: no distress - Additional Exam CARLOS tube in right aspect of abdomen draining clear fluid - Labs 02/17/18 07:18 02/17/18 07:18 Diabetes panel 02/17/18 Range/Units 07:18 Sodium 134 L (136-145) mEq/L Potassium 3.4 L (3.5-5.1) mEq/L Chloride 104 (98-107) mEq/L Carbon Dioxide 25 (23-29) mEq/L BUN 22 (8-23) mg/dL Creatinine 0.86 (0.60-1.20) mg/dL Glucose 181 H (70-105) mg/dL Calcium 8.1 L (8.6-10.3) mg/dL AST 23 (13-39) Units/L ALT 31 (7-52) Units/L Alkaline Phosphatase 56 (34-104) Units/L Albumin 2.7 L (3.5-5.7) g/dL Calcium panel 02/17/18 Range/Units 07:18 Calcium 8.1 L (8.6-10.3) mg/dL Albumin 2.7 L (3.5-5.7) g/dL Pituitary panel 02/17/18 Range/Units 07:18 Sodium 134 L (136-145) mEq/L Potassium 3.4 L (3.5-5.1) mEq/L Chloride 104 (98-107) mEq/L Carbon Dioxide 25 (23-29) mEq/L BUN 22 (8-23) mg/dL Creatinine 0.86 (0.60-1.20) mg/dL Glucose 181 H (70-105) mg/dL Calcium 8.1 L (8.6-10.3) mg/dL Adrenal panel 02/17/18 Range/Units 07:18 Sodium 134 L (136-145) mEq/L Potassium 3.4 L (3.5-5.1) mEq/L Chloride 104 (98-107) mEq/L Carbon Dioxide 25 (23-29) mEq/L BUN 22 (8-23) mg/dL Creatinine 0.86 (0.60-1.20) mg/dL Glucose 181 H (70-105) mg/dL Calcium 8.1 L (8.6-10.3) mg/dL Total Bilirubin 1.0 (0.3-1.0) mg/dL AST 23 (13-39) Units/L ALT 31 (7-52) Units/L Alkaline Phosphatase 56 (34-104) Units/L Albumin 2.7 L (3.5-5.7) g/dL Consult Discharge Plan - Plan Referrals: NONE,PCP [Primary Care Provider] -
--- NOTE | 2018-02-17 20:06 | Internal Med Progress Note ---
Date of Encounter: 02/17/18 Time of Encounter: 14:00 - Assessment and plan (1) Hypertension Current Visit: Yes Status: Chronic Assessment and plan: Stable. Chronic. No antihypertensives. Qualifiers: Hypertension type: essential hypertension Qualified Code(s): I10 - Essential (primary) hypertension (2) Acute cholecystitis Current Visit: Yes Status: Acute Assessment and plan: After discussion with surgeon, patient has declined surgery due to increased risks. Patient will have a cholecystostomy tube placed by IR tomorrow. Nothing by mouth after midnight Continue Cipro and Flagyl. (3) UTI (urinary tract infection) Current Visit: Yes Status: Acute Assessment and plan: Urinalysis indicative of UTI Patient is on Cipro and Flagyl Follow urine culture, ordered and pending Qualifiers: Urinary tract infection type: site unspecified Hematuria presence: without hematuria Qualified Code(s): N39.0 - Urinary tract infection, site not specified (4) Cholelithiasis Current Visit: Yes Status: Acute Assessment and plan: CT abdomen shows cholecystitis with gallstone. Plan as above. Qualifiers: Cholelithiasis location: gallbladder Cholecystitis presence: with cholecystitis Cholecystitis acuity: acute Biliary obstruction: without biliary obstruction Qualified Code(s): K80.00 - Calculus of gallbladder with acute cholecystitis without obstruction (5) Renal stone Current Visit: Yes Status: Acute Assessment and plan: Patient with bilateral renal pelvis stones and hydronephrosis. Serum creatinine 0.86, GFR is greater than 60. Urology has seen the patient Urology consulted, patient has decided not to proceed with bilateral ureteral stents due to risks, comorbidities, and DNR status. Urology continues to follow, I appreciate their recommendations and consultations. They will speak patient again tomorrow. (6) Hydronephrosis Current Visit: Yes Status: Acute Assessment and plan: Plan as above. Qualifiers: Hydronephrosis type: with renal calculous obstruction Qualified Code(s): N13.2 - Hydronephrosis with renal and ureteral calculous obstruction (7) Leg swelling Current Visit: Yes Status: Acute Assessment and plan: Bilateral lower extremity edema, patient states is normal for her. She denies any increase in pain or edema. Patient has dropfoot bilaterally. She reports that she has been bedbound for about the last year. Echocardiogram shows LVEF of 60-65% with mild LV DD, mild TR. Chest x-ray is negative for signs of pulmonary congestion. Continue to monitor. Labs are stable and within normal limits, will give patient a small dose of by mouth Lasix tomorrow after procedure. (8) DVT prophylaxis Current Visit: No Status: Acute Assessment and plan: SCDs are ordered. - Time Spent With Patient Total time spent is greater than 50% in coordination of care (as documented) at patient's floor/unit and/or counseling patient: less than 15 minutes - Subjective Interval history: Patient was seen and assessed at bedside at 1400. Patient is pleasant, alert, awake and oriented. She answers questions appropriately and her mentation is clear. Patient reports that as long as she is still her abdominal pain is manageable. She denies need for further pain management. She denies headache or blurred vision, no chest pain or shortness of breath. No nausea vomiting or diarrhea. - Constitutional Vitals: Temp Pulse Resp BP Pulse Ox 97.4 F L 80 14 120/79 94 02/17/18 15:34 02/17/18 15:34 02/17/18 15:34 02/17/18 15:34 02/17/18 15:34 General appearance: Present: cooperative, A&O X 3, pleasant, no acute distress, answers questions appropriately - Head Head exam: Present: atraumatic, normal inspection, normocephalic - Eye Eye exam: Present: normal appearance, conjuntiva pink, sclera anicteric Pupils: Present: PERRL - Neck Neck exam general surgery: Present: supple, trachea midline. Absent: lymphadenopathy - Respiratory Respiratory exam: Present: decreased breath sounds, CTAB. Absent: accessory muscle use, chest wall tenderness, rales, respiratory distress, rhonchi, wheezes - Cardiovascular Cardiovascular exam: Present: RRR, +S1, +S2. Absent: diastolic murmur, gallop, rubs, systolic murmur - GI/Abdominal GI/Abdominal exam: Present: normal bowel sounds, soft, no peritoneal signs. Absent: distended, hernia, hepatomegaly, tenderness - Extremities Exam Extremities exam: Present: pedal edema, warm, radial pulses palpable and symmetrical. Absent: calf tenderness, cyanotic, normal capillary refill, normal inspection Additional comments: Patient has bilateral drop foot. - Neurological Exam Neurological exam: Present: alert, oriented X3, no focal deficits. Absent: altered, facial droop, speech deficit - Skin Skin exam: Present: dry, intact, warm. Absent: rash Internal Medicine: Result - Labs CBC & Chem 7: 02/17/18 07:18 02/17/18 07:18 Labs: Short CBC 02/17/18 Range/Units 07:18 WBC 19.6 H (4.3-11.1) K/mcL Hgb 12.3 D (11.5-15.4) g/dL Hct 37.2 (35.3-44.9) % Plt Count 224 (140-400) K/mcL Neutrophils # 15.5 H (1.6-8.9) K/mcL BMP 02/17/18 07:18 Sodium 134 L Potassium 3.4 L Chloride 104 Carbon Dioxide 25 BUN 22 Creatinine 0.86 Glucose 181 H Calcium 8.1 L Liver Function 02/17/18 Range/Units 07:18 Total Bilirubin 1.0 (0.3-1.0) mg/dL AST 23 (13-39) Units/L ALT 31 (7-52) Units/L Alkaline Phosphatase 56 (34-104) Units/L Albumin 2.7 L (3.5-5.7) g/dL - ABG Interpretation ABG results: PT/INR, D-dimer PT 15.6 Seconds (9.4-12.1) H 02/17/18 14:28 - Impressions Impressions Gallbladder Ultrasound 02/16/18 13:56 IMPRESSION: Distended gallbladder showing multiple stones as well as wall thickening. Correlation for acute cholecystitis is recommended. D/ / Yolanda Zamudio Cha, MD / Yolanda Zamudio Cha, MD Interpreting Provider: Yolanda Zamudio Cha, MD Needle Aspiration CT 02/17/18 00:00 IMPRESSION: Successful CT guided placement of cholecystostomy tube. D/ / Awais Rizvi MD / Awais Rizvi MD Interpreting Provider: Awais Rizvi MD Bile Acid Absorption NM 02/17/18 00:01 IMPRESSION: No activity is seen within the gallbladder. This can be seen with cholecystitis. D/ / Supa Gautam MD / Supa Gautam MD Interpreting Provider: Supa Gautam MD Consult Discharge Plan - Plan Referrals: NONE,PCP [Primary Care Provider] -
[2018-02-18 06:36] LABS: Basophils % 0.2 %; Eosinophils % 0.2 %; Hematocrit 38.4 % (35.3-44.9); Hemoglobin 12.3 g/dL (11.5-15.4); Lymphocytes # 1.4 K/mcL (0.6-4.6); Lymphocytes % 9.9 %; Mean Corpuscular Hemoglobin 30.1 pg (28.0-33.3); Mean Corpuscular Volume 93.9 fL (83.0-100.0); Mean Platelet Volume 9.4 fL (9.4-12.4); Monocytes # 1.3 K/mcL (0.0-1.3); Neutrophils # 11.2 K/mcL (1.6-8.9); Platelet Count 240 K/mcL (140-400); Red Blood Count 4.09 M/mcL (3.82-4.97); Red Cell Distribution Width 14.6 % (11.5-14.5); Segmented Neutrophils % 79.7 %
[2018-02-18 06:59] LABS: BUN/Creatinine Ratio 30 (6-26); Blood Urea Nitrogen 22 mg/dL (8-23); Calcium 8.2 mg/dL (8.6-10.3); Carbon Dioxide 25 mEq/L (23-29); Chloride 104 mEq/L (98-107); Glucose 177 mg/dL (70-105); Osmolality,Calculated 284 (280-300); Potassium 3.5 mEq/L (3.5-5.1); Sodium 133 mEq/L (136-145); eGFR For African Americans > 60 (> 60); eGFR For Non-African Americans > 60 (> 60)
[2018-02-18] MEDS: MetroNIDAZOLE 500 MG/100 ML 500 MG/100 ML BAG IVPB SCH ×2 (10:22→16:32)
--- NOTE | 2018-02-18 15:17 | Internal Med Progress Note ---
Date of Encounter: 02/18/18 Time of Encounter: 11:25 - Assessment and plan (1) Hypertension Current Visit: Yes Status: Chronic Assessment and plan: Stable. Chronic. No antihypertensive medications. Qualifiers: Hypertension type: essential hypertension Qualified Code(s): I10 - Essential (primary) hypertension (2) Acute cholecystitis Current Visit: Yes Status: Acute Assessment and plan: cholecystostomy tube placed by IR. Continue Cipro and Flagyl. Pain control is adequate, denies need for more pain medication. (3) UTI (urinary tract infection) Current Visit: Yes Status: Acute Assessment and plan: Urinalysis indicative of UTI. Initial culture GNR. Modify antibiotics as indicated by final culture and sensitivity Patient is on Cipro and Flagyl Follow urine culture, ordered and pending Qualifiers: Urinary tract infection type: site unspecified Hematuria presence: without hematuria Qualified Code(s): N39.0 - Urinary tract infection, site not specified (4) Cholelithiasis Current Visit: Yes Status: Acute Assessment and plan: CT abdomen shows cholecystitis with gallstone. Cholecystostomy placed yesterday. Plan as above. Qualifiers: Cholelithiasis location: gallbladder Cholecystitis presence: with cholecystitis Cholecystitis acuity: acute Biliary obstruction: without biliary obstruction Qualified Code(s): K80.00 - Calculus of gallbladder with acute cholecystitis without obstruction (5) Renal stone Current Visit: Yes Status: Acute Assessment and plan: Patient with bilateral renal pelvis stones and hydronephrosis. Creat and BUN have remained WNL throughout visit. Urology consulted, patient has decided not to proceed with bilateral ureteral stents due to risks, comorbidities, and DNR status. Urology continues to follow, I appreciate their recommendations and consultations. (6) Hydronephrosis Current Visit: Yes Status: Acute Assessment and plan: Plan as above for renal calculi. Qualifiers: Hydronephrosis type: with renal calculous obstruction Qualified Code(s): N13.2 - Hydronephrosis with renal and ureteral calculous obstruction (7) Leg swelling Current Visit: Yes Status: Acute Assessment and plan: Bilateral lower extremity edema, remains unchanged, normal per pt. Patient has dropfoot bilaterally. Pt is bedbound. Echocardiogram shows LVEF of 60-65% with mild LV DD, mild TR. Chest x-ray is negative for signs of pulmonary congestion. Continue to monitor. Labs are stable and within normal limits, will add Lasix 20mg po daily, monitor labs. (8) DVT prophylaxis Current Visit: No Status: Acute Assessment and plan: SCDs are ordered. - Time Spent With Patient Total time spent is greater than 50% in coordination of care (as documented) at patient's floor/unit and/or counseling patient: less than 15 minutes - Subjective Interval history: Patient was seen and assessed at bedside at 1125. Patient is pleasant, alert, awake and oriented. She answers questions appropriately and her mentation is clear. Pt reports adequate pain control since procedure. She denies need for further pain medication. She denies headache or blurred vision, no chest pain or shortness of breath. No nausea vomiting or diarrhea. She seemed to be a little unclear about what the plan for urology and her renal calculi were, I read the urology note to her and she said that she would like to talk to Dr. Paez again. Pt will most likely discharge tomorrow. - Constitutional Vitals: Temp Pulse Resp BP Pulse Ox 98.1 F 79 22 108/72 92 02/18/18 11:35 02/18/18 11:35 02/18/18 11:35 02/18/18 11:35 02/18/18 11:35 General appearance: Present: cooperative, A&O X 3, pleasant, no acute distress, answers questions appropriately - Head Head exam: Present: atraumatic, normal inspection, normocephalic - Eye Eye exam: Present: normal appearance, conjuntiva pink, sclera anicteric - Neck Neck exam general surgery: Present: supple, trachea midline. Absent: lymphadenopathy - Respiratory Respiratory exam: Present: CTAB. Absent: accessory muscle use, rales, rhonchi, wheezes - Cardiovascular Cardiovascular exam: Present: RRR, +S1, +S2. Absent: diastolic murmur, gallop, rubs, systolic murmur - GI/Abdominal GI/Abdominal exam: Present: normal bowel sounds, soft. Absent: distended, hepatomegaly, tenderness - Extremities Exam Extremities exam: Present: normal capillary refill, normal inspection, warm, radial pulses palpable and symmetrical. Absent: calf tenderness, cyanotic, pedal edema, tenderness - Neurological Exam Neurological exam: Present: alert, oriented X3, no focal deficits. Absent: facial droop, speech deficit - Skin Skin exam: Present: dry, intact, normal color, warm. Absent: rash Internal Medicine: Result - Labs CBC & Chem 7: 02/18/18 05:49 02/18/18 05:49 Labs: Short CBC 02/18/18 Range/Units 05:49 WBC 14.1 H (4.3-11.1) K/mcL Hgb 12.3 (11.5-15.4) g/dL Hct 38.4 (35.3-44.9) % Plt Count 240 (140-400) K/mcL Neutrophils # 11.2 H (1.6-8.9) K/mcL BMP 02/18/18 05:49 Sodium 133 L Potassium 3.5 Chloride 104 Carbon Dioxide 25 BUN 22 Creatinine 0.74 Glucose 177 H Calcium 8.2 L - ABG Interpretation ABG results: PT/INR, D-dimer PT 15.6 Seconds (9.4-12.1) H 02/17/18 14:28 - Impressions Impressions Needle Aspiration CT 02/17/18 00:00 IMPRESSION: Successful CT guided placement of cholecystostomy tube. D/ / Awais Rizvi MD / Awais Rizvi MD Interpreting Provider: Awais Rizvi MD Consult Discharge Plan - Plan Referrals: NONE,PCP [Primary Care Provider] -
[2018-02-18] MEDS ORDERED: Furosemide 20 MG TABLET PO PRN (15:43)
--- NOTE | 2018-02-18 17:54 | Urology Progress Note ---
Date of Encounter: 02/18/18 Time of Encounter: 17:52 - Assessment and Plan (1) Renal stones Current Visit: Yes Status: Acute (2) Hydronephrosis Current Visit: Yes Status: Acute Assessment and plan: We again discussed the bilateral kidney stones. Patient again reiterates that she is comfortable observing and does understand the risk of developing urosepsis. She does not want to proceed with any further intervention at this time. Because of her DNR status and basically palliative care no need for urology follow-up unless she changes her mind or begins to have significant symptoms from the kidney stones Qualifiers: Hydronephrosis type: with renal calculous obstruction Qualified Code(s): N13.2 - Hydronephrosis with renal and ureteral calculous obstruction Progress Note Subjective: no new complaints Objective Initial Vital Signs Temp Pulse Resp BP Pulse Ox 98.5 F 113 17 189/100 95 02/16/18 03:14 02/16/18 03:14 02/16/18 03:14 02/16/18 03:14 02/16/18 03:14 - General physical appearance Present: no distress - Labs 02/18/18 05:49 02/18/18 05:49 Diabetes panel 02/18/18 Range/Units 05:49 Sodium 133 L (136-145) mEq/L Potassium 3.5 (3.5-5.1) mEq/L Chloride 104 (98-107) mEq/L Carbon Dioxide 25 (23-29) mEq/L BUN 22 (8-23) mg/dL Creatinine 0.74 (0.60-1.20) mg/dL Glucose 177 H (70-105) mg/dL Calcium 8.2 L (8.6-10.3) mg/dL Calcium panel 02/18/18 Range/Units 05:49 Calcium 8.2 L (8.6-10.3) mg/dL Pituitary panel 02/18/18 Range/Units 05:49 Sodium 133 L (136-145) mEq/L Potassium 3.5 (3.5-5.1) mEq/L Chloride 104 (98-107) mEq/L Carbon Dioxide 25 (23-29) mEq/L BUN 22 (8-23) mg/dL Creatinine 0.74 (0.60-1.20) mg/dL Glucose 177 H (70-105) mg/dL Calcium 8.2 L (8.6-10.3) mg/dL Adrenal panel 02/18/18 Range/Units 05:49 Sodium 133 L (136-145) mEq/L Potassium 3.5 (3.5-5.1) mEq/L Chloride 104 (98-107) mEq/L Carbon Dioxide 25 (23-29) mEq/L BUN 22 (8-23) mg/dL Creatinine 0.74 (0.60-1.20) mg/dL Glucose 177 H (70-105) mg/dL Calcium 8.2 L (8.6-10.3) mg/dL Consult Discharge Plan - Plan Referrals: NONE,PCP [Primary Care Provider] -
[2018-02-19] MEDS: MetroNIDAZOLE 500 MG/100 ML 500 MG/100 ML BAG IVPB SCH ×3 (00:41→17:20)
[2018-02-19 06:00] LABS: Basophils % 0.3 %; Eosinophils # 0.1 K/mcL (0.0-0.6); Eosinophils % 1.1 %; Hematocrit 38.2 % (35.3-44.9); Hemoglobin 12.2 g/dL (11.5-15.4); Immature Granulocytes % 0.6 % (0-4); Lymphocytes # 1.4 K/mcL (0.6-4.6); Lymphocytes % 11.2 %; Mean Corpuscular HGB Conc 31.9 g/dL (31.6-35.5); Mean Corpuscular Hemoglobin 29.5 pg (28.0-33.3); Mean Corpuscular Volume 92.3 fL (83.0-100.0); Mean Platelet Volume 9.5 fL (9.4-12.4); Monocytes # 1.1 K/mcL (0.0-1.3); Monocytes % 8.8 %; Neutrophils # 9.5 K/mcL (1.6-8.9); Platelet Count 253 K/mcL (140-400); Red Blood Count 4.14 M/mcL (3.82-4.97); Red Cell Distribution Width 14.6 % (11.5-14.5)
[2018-02-19 06:19] LABS: BUN/Creatinine Ratio 32 (6-26); Blood Urea Nitrogen 18 mg/dL (8-23); Calcium 8.2 mg/dL (8.6-10.3); Carbon Dioxide 25 mEq/L (23-29); Chloride 105 mEq/L (98-107); Glucose 90 mg/dL (70-105); Osmolality,Calculated 285 (280-300); Potassium 3.6 mEq/L (3.5-5.1); Sodium 137 mEq/L (136-145); eGFR For African Americans > 60 (> 60); eGFR For Non-African Americans > 60 (> 60)
--- NOTE | 2018-02-19 09:27 | Discharge Summary ---
- NOTES TO OUTPATIENT PROVIDER Notes to Outpatient Provider: Pt was admitted for acute cholecystitis, as well as UTI, renal calculi, and hydronephrosis. Pt decided to forego surgery for cholecystectomy and placement of bilateral ureteral stents, instead she has had a cholecystostomy placed and is treating the renal stones conservatively. Pt's leukocytosis is resolving and her renal function, as well as other labs are stable. She was treated with Cipro and Flagyl IV, final urine cultre shows Pseudomonas aeruginosa, will be discharged with Levaquin po based on sensitivity report. Date of Encounter: 02/19/18 Time of Encounter: 08:10 - Discharge Diagnosis (1) Cholelithiasis Priority: Primary Status: Acute Assessment and Plan: CT abdomen shows cholecystitis with gallstone. Cholecystostomy placed. Pt is tolerating well and reports improvement in pain. Follow with PCP for close monitoring. Qualifiers: Cholelithiasis location: gallbladder Cholecystitis presence: with cholecystitis Cholecystitis acuity: acute Biliary obstruction: without biliary obstruction Qualified Code(s): K80.00 - Calculus of gallbladder with acute cholecystitis without obstruction (2) Acute cholecystitis Priority: Secondary Status: Acute Assessment and Plan: Plan as above (3) UTI (urinary tract infection) Priority: Secondary Status: Acute Assessment and Plan: Final culture Pseudomonas aeruginosa. Pt has been treated with Cipro and Flagyl for cholecystitis, will be sent home with Levaquin po based on sensitivity. Leukocytosis is resolving. Pt is afebrile, no tachycardia, normotensive. Qualifiers: Urinary tract infection type: site unspecified Hematuria presence: without hematuria Qualified Code(s): N39.0 - Urinary tract infection, site not specified (4) Hydronephrosis Priority: Secondary Status: Acute Assessment and Plan: Plan as above Qualifiers: Hydronephrosis type: with renal calculous obstruction Qualified Code(s): N13.2 - Hydronephrosis with renal and ureteral calculous obstruction (5) Hypertension Priority: Secondary Status: Chronic Assessment and Plan: Chronic. Well controlled without medications. Qualifiers: Hypertension type: essential hypertension Qualified Code(s): I10 - Essential (primary) hypertension (6) Renal stone Priority: Secondary Status: Acute Assessment and Plan: Plan as above. (7) Leg swelling Priority: Secondary Status: Chronic Assessment and Plan: Stable. Chronic. Continue Lasix 20mg po daily prn. (8) DVT prophylaxis Priority: Secondary Status: Acute Assessment and Plan: SCDs ordered. Hospital course: Ms. Rodgers is a 87 year old female with past medical history of hypertension , subdural hygroma, bilateral lower extremity weakness. Patient was admitted to the emergency department from [facility] with complaint of abdominal pain. Patient was found to have acute cholecystitis as well as bilateral renal pelvis stones and hydronephrosis. Patient was to have laparoscopic cholecystectomy, while under general anesthesia, patient would have bilateral ureteral stents placed. After careful consideration and consultation with urology and surgery, patient decided to not have surgery or stents placed. Cholecystostomy tube placed by IR, patient is managing the renal pelvis stones conservatively. She also found to have urinary tract infection pseudomonas. Patient had been treated for cholecystitis with Flagyl and Cipro. Patient will be sent home with by mouth Levaquin to treat urinary tract infection. Patient reports that her pain is adequately controlled that she is feeling better. She had mild leukocytosis on admission, it has decreased to 12.2. Her renal function is within normal limits. Patient is afebrile, no tachycardia, normotensive, she is maintaining her O2 sats greater than 92% with 2 L O2. Patient is stable and appropriate for discharge and return to ECF. Discharge discussed with: patient - Time Spent with Patient Total time spent providing and/or coordinating discharge services: Less than 30 minutes - Discharge Medications Prescriptions: OxyCODONE/APAP 5/325 [Percocet 5/325 MG] 1 each PO Q6HR PRN 3 Days #10 tablet PRN Reason: Pain Docusate [Colace] 100 mg PO BID #60 capsule levoFLOXacin [Levaquin] 500 mg PO DAILY #7 tablet Home Medications: Ca/D3/Mag#11/Zinc/[employer]/Braden/Bor [Caltrate 600+D Plus Tablet] 1 each PO BID [History] Ergocalciferol (VITAMIN D2) [Vitamin D] 400 unit PO DAILY 09/16/16 [History] Acetaminophen [Tylenol] 650 mg PO Q6HR PRN tablet 02/19/18 [Rx] Docusate [Colace] 100 mg PO BID #60 capsule 02/19/18 [Rx] Furosemide [Lasix] 20 mg PO DAILY PRN tablet 02/19/18 [Rx] Ondansetron [Zofran] 4 mg IVP Q6H PRN vial 02/19/18 [Rx] OxyCODONE/APAP 5/325 [Percocet 5/325 MG] 1 each PO Q6HR PRN 3 Days #10 tablet [Rx] levoFLOXacin [Levaquin] 500 mg PO DAILY #7 tablet 02/19/18 [Rx] Allergies/Adverse Reactions: 3 Allergy/AdvReac Type Severity Reaction Status Date / Time bacitracin Allergy Hives Verified 09/16/16 10:29 [From Neosporin ([id number])] Neomycin Allergy Hives Verified 09/16/16 10:29 [From Neosporin ([id number])] Penicillins Allergy Hives Verified 09/16/16 10:29 polymyxin B Allergy Hives Verified 09/16/16 10:29 [From Neosporin ([id number])] Sulfa (Sulfonamide Allergy SWELLING Verified 09/16/16 10:29 Antibiotics) Tetracycline AdvReac FAINTED Verified 09/16/16 10:29 Date of admission: 02/16/18 06:53 Primary care physician: PCP NONE Consults: 02/17/18 14:11 Consult to Interventional Radiology [CONS] Routine Consulting Provider: Radiology Interventional Cols Reason for Consult: Consult Time Notified: 14:11 Call Completed: Yes 02/18/18 09:11 Consult to Feed Mill Manager [CONS] Routine Reason for SW Consult: patient from [facility] through [facility]. Unsure where they will admit her to after D/C> Patient bed bound per her decision. Refused therapy in the past at [facility]. Discharging clinician: Payton Lakhani Anticipated date of discharge: 02/19/18 - Constitutional Vitals: Temp Pulse Resp BP Pulse Ox 99.3 F 86 17 119/76 93 02/19/18 06:50 02/19/18 06:50 02/19/18 06:50 02/19/18 06:50 02/19/18 06:50 General appearance: Present: cooperative, A&O X 3, pleasant, no acute distress, answers questions appropriately - Patient Status Disposition: Transfer SNF Condition: Fair Functional capacity at discharge: bed bound Overall status at discharge: patient is progressing back to baseline - Discharge Instructions Follow Up With: NONE,PCP [Primary Care Provider] - - Diet and Activity Activity: increase activity as tolerated Diet: advance to your usual diet - VTE Documentation of Mechanical Device: Intermittent pneumatic compression device
[2018-02-20] MEDS: MetroNIDAZOLE 500 MG/100 ML 500 MG/100 ML BAG IVPB SCH (00:15)
[2018-02-20 04:41] LABS: Basophils % 0.4 %; Eosinophils # 0.1 K/mcL (0.0-0.6); Eosinophils % 1.2 %; Hematocrit 38.6 % (35.3-44.9); Hemoglobin 12.5 g/dL (11.5-15.4); Immature Granulocytes % 0.7 % (0-4); Lymphocytes # 1.5 K/mcL (0.6-4.6); Lymphocytes % 13.2 %; Mean Corpuscular HGB Conc 32.4 g/dL (31.6-35.5); Mean Corpuscular Hemoglobin 29.3 pg (28.0-33.3); Mean Corpuscular Volume 90.4 fL (83.0-100.0); Mean Platelet Volume 8.9 fL (9.4-12.4); Monocytes # 1.3 K/mcL (0.0-1.3); Monocytes % 11.6 %; Neutrophils # 8.3 K/mcL (1.6-8.9); Platelet Count 292 K/mcL (140-400); Red Blood Count 4.27 M/mcL (3.82-4.97); Red Cell Distribution Width 14.2 % (11.5-14.5); Segmented Neutrophils % 72.9 %
[2018-02-20 05:03] LABS: BUN/Creatinine Ratio 27 (6-26); Blood Urea Nitrogen 16 mg/dL (8-23); Calcium 8.1 mg/dL (8.6-10.3); Carbon Dioxide 26 mEq/L (23-29); Chloride 106 mEq/L (98-107); Glucose 104 mg/dL (70-105); Osmolality,Calculated 289 (280-300); Potassium 3.1 mEq/L (3.5-5.1); Sodium 139 mEq/L (136-145); eGFR For African Americans > 60 (> 60); eGFR For Non-African Americans > 60 (> 60)
[2018-02-20] MEDS: D5% in 0.45% NACL 1,000 ML IVC SCH (05:24)
[2018-02-20] MEDS: Potassium Chloride Elixir 20 MEQ/15 ML UDC PO SCH ×2 (09:35→17:37)
--- NOTE | 2018-02-20 15:41 | Internal Med Progress Note ---
Date of Encounter: 02/20/18 Time of Encounter: 08:50 - Assessment and plan (1) Cholelithiasis Current Visit: Yes Status: Acute Assessment and plan: Cholecystostomy placed. Pt is tolerating well and reports improvement in pain. Follow with PCP for close monitoring after discharge. Qualifiers: Cholelithiasis location: gallbladder Cholecystitis presence: with cholecystitis Cholecystitis acuity: acute Biliary obstruction: without biliary obstruction Qualified Code(s): K80.00 - Calculus of gallbladder with acute cholecystitis without obstruction (2) Acute cholecystitis Current Visit: Yes Status: Acute Assessment and plan: Plan as above. Pt's pain is well controlled. Tube in place. (3) UTI (urinary tract infection) Current Visit: Yes Status: Acute Assessment and plan: Final culture Pseudomonas aeruginosa. Cipro and Flagyl discontinued, Levaquin 500mg po started. Leukocytosis continues to decrease, 11.3 today. Pt is afebrile, no tachycardia, normotensive. Qualifiers: Urinary tract infection type: site unspecified Hematuria presence: without hematuria Qualified Code(s): N39.0 - Urinary tract infection, site not specified (4) Hydronephrosis Current Visit: Yes Status: Acute Assessment and plan: Plan as above Qualifiers: Hydronephrosis type: with renal calculous obstruction Qualified Code(s): N13.2 - Hydronephrosis with renal and ureteral calculous obstruction (5) Hypertension Current Visit: Yes Status: Chronic Assessment and plan: Pt with BP above goal. Pt states that she is frustrated with having to be here and is concerned about how to get her belongings out of her room at [facility] since she can't go back to her place. She is aware of HTN and states that she does not want to take any other anti hypertensives, requests that I do not start new medication. Continue to monitor BP. Qualifiers: Hypertension type: essential hypertension Qualified Code(s): I10 - Essential (primary) hypertension (6) Renal stone Current Visit: Yes Status: Acute Assessment and plan: Plan as above. (7) Leg swelling Current Visit: Yes Status: Chronic Assessment and plan: Stable. Chronic. Continue Lasix 20mg po daily prn. Minimal improvement with po dose. Continue to treat. (8) DVT prophylaxis Current Visit: No Status: Acute Assessment and plan: SCDs, pt tolerating well. - Time Spent With Patient Total time spent is greater than 50% in coordination of care (as documented) at patient's floor/unit and/or counseling patient: less than 15 minutes - Subjective Interval history: Patient was seen and assessed at bedside at 0850. Patient is pleasant, alert, awake and oriented. She denies headache or blurred vision, no chest pain or shortness of breath. No nausea vomiting or diarrhea. Pt states that she is comfortable and does not need increased pain medication. She is aware of having to be here until Wednesday due to jail placement. - Constitutional Vitals: Temp Pulse Resp BP Pulse Ox 98.5 F 85 16 160/76 93 02/20/18 11:19 02/20/18 11:19 02/20/18 11:19 02/20/18 11:19 02/20/18 11:19 General appearance: Present: cooperative, A&O X 3, pleasant, no acute distress, answers questions appropriately - Head Head exam: Present: atraumatic, normal inspection, normocephalic - Eye Eye exam: Present: normal appearance, conjuntiva pink, sclera anicteric - Neck Neck exam general surgery: Present: supple, trachea midline. Absent: lymphadenopathy, tenderness - Respiratory Respiratory exam: Present: CTAB. Absent: accessory muscle use, chest wall tenderness, rales, respiratory distress, rhonchi, wheezes - Cardiovascular Cardiovascular exam: Present: RRR, +S1, +S2. Absent: diastolic murmur, gallop, rubs, systolic murmur - GI/Abdominal GI/Abdominal exam: Present: normal bowel sounds, soft. Absent: distended, hepatomegaly, tenderness - Extremities Exam Extremities exam: Present: normal capillary refill, normal inspection, warm, radial pulses palpable and symmetrical. Absent: calf tenderness, cyanotic, pedal edema, tenderness - Neurological Exam Neurological exam: Present: alert, oriented X3, no focal deficits. Absent: facial droop, speech deficit - Skin Skin exam: Present: dry, intact, normal color, warm. Absent: rash Internal Medicine: Result - Labs CBC & Chem 7: 02/20/18 04:13 02/20/18 04:13 Labs: Short CBC 02/20/18 Range/Units 04:13 WBC 11.3 H (4.3-11.1) K/mcL Hgb 12.5 (11.5-15.4) g/dL Hct 38.6 (35.3-44.9) % Plt Count 292 (140-400) K/mcL Neutrophils # 8.3 (1.6-8.9) K/mcL BMP 02/20/18 04:13 Sodium 139 Potassium 3.1 L Chloride 106 Carbon Dioxide 26 BUN 16 Creatinine 0.59 L Glucose 104 Calcium 8.1 L - ABG Interpretation ABG results: PT/INR, D-dimer PT 15.6 Seconds (9.4-12.1) H 02/17/18 14:28 - VTE Documentation of Mechanical Device: Intermittent pneumatic compression device Consult Discharge Plan - Plan Referrals: NONE,PCP [Primary Care Provider] - Prescriptions: OxyCODONE/APAP 5/325 [Percocet 5/325 MG] 1 each PO Q6HR PRN 3 Days #10 tablet PRN Reason: Pain Docusate [Colace] 100 mg PO BID #60 capsule levoFLOXacin [Levaquin] 500 mg PO DAILY #7 tablet
[2018-02-20] MEDS: levoFLOXacin 500 MG TABLET PO SCH (17:37)
[2018-02-21 07:55] LABS: BUN/Creatinine Ratio 28 (6-26); Blood Urea Nitrogen 15 mg/dL (8-23); Calcium 8.2 mg/dL (8.6-10.3); Carbon Dioxide 28 mEq/L (23-29); Chloride 107 mEq/L (98-107); Glucose 108 mg/dL (70-105); Osmolality,Calculated 289 (280-300); Potassium 3.6 mEq/L (3.5-5.1); Sodium 139 mEq/L (136-145); eGFR For African Americans > 60 (> 60); eGFR For Non-African Americans > 60 (> 60)
[2018-02-21 07:56] LABS: Basophils # 0.1 K/mcL (0.0-0.2); Basophils % 0.6 %; Eosinophils # 0.2 K/mcL (0.0-0.6); Eosinophils % 1.6 %; Hematocrit 38.3 % (35.3-44.9); Hemoglobin 12.6 g/dL (11.5-15.4); Immature Granulocytes % 1.3 % (0-4); Lymphocytes # 1.5 K/mcL (0.6-4.6); Lymphocytes % 15.8 %; Mean Corpuscular HGB Conc 32.9 g/dL (31.6-35.5); Mean Corpuscular Hemoglobin 30.4 pg (28.0-33.3); Mean Corpuscular Volume 92.5 fL (83.0-100.0); Mean Platelet Volume 9.1 fL (9.4-12.4); Monocytes # 1.3 K/mcL (0.0-1.3); Neutrophils # 6.4 K/mcL (1.6-8.9); Platelet Count 302 K/mcL (140-400); Red Blood Count 4.14 M/mcL (3.82-4.97); Red Cell Distribution Width 14.1 % (11.5-14.5); Segmented Neutrophils % 66.7 %
[2018-02-21] MEDS: levoFLOXacin 500 MG TABLET PO SCH (07:56)
[2018-02-21] MEDS: Potassium Chloride Elixir 20 MEQ/15 ML UDC PO SCH ×2 (07:56→16:57)
--- NOTE | 2018-02-21 15:07 | Internal Med Progress Note ---
Date of Encounter: 02/21/18 Time of Encounter: 08:45 - Assessment and plan (1) Cholelithiasis Current Visit: Yes Status: Acute Assessment and plan: Pt is tolerating well and reports improvement in pain. Continue to monitor cholecystostomy site and drainage. Qualifiers: Cholelithiasis location: gallbladder Cholecystitis presence: with cholecystitis Cholecystitis acuity: acute Biliary obstruction: without biliary obstruction Qualified Code(s): K80.00 - Calculus of gallbladder with acute cholecystitis without obstruction (2) Acute cholecystitis Current Visit: Yes Status: Acute Assessment and plan: Plan as above. Pain controlled. Tube in place. (3) UTI (urinary tract infection) Current Visit: Yes Status: Acute Assessment and plan: Final culture Pseudomonas aeruginosa. Continue Levaquin by mouth Leukocytosis resolved Pt is afebrile, no tachycardia, normotensive. Qualifiers: Urinary tract infection type: site unspecified Hematuria presence: without hematuria Qualified Code(s): N39.0 - Urinary tract infection, site not specified (4) Hydronephrosis Current Visit: Yes Status: Acute Assessment and plan: Plan as above Qualifiers: Hydronephrosis type: with renal calculous obstruction Qualified Code(s): N13.2 - Hydronephrosis with renal and ureteral calculous obstruction (5) Hypertension Current Visit: Yes Status: Chronic Assessment and plan: Pt with BP above goal, improving. She is aware of HTN and states that she does not want to take any other anti hypertensives, requests that I do not start new medication. Continue to monitor BP per admission order. Qualifiers: Hypertension type: essential hypertension Qualified Code(s): I10 - Essential (primary) hypertension (6) Renal stone Current Visit: Yes Status: Acute Assessment and plan: Supportive care (7) Leg swelling Current Visit: Yes Status: Chronic Assessment and plan: Chronic. Minimal improvement. Continue Lasix 20mg po daily prn. Continue Lasix by mouth. (8) DVT prophylaxis Current Visit: Yes Status: Acute Assessment and plan: SCDs, pt tolerating well. - Time Spent With Patient Total time spent is greater than 50% in coordination of care (as documented) at patient's floor/unit and/or counseling patient: less than 15 minutes - Subjective Interval history: Patient was seen and assessed at bedside at 0845. Patient is pleasant, alert, awake and oriented. Voices frustration that she [facility] and states that she might like to go to [facility] in [place]. She denies headache or blurred vision, no chest pain or shortness of breath. No nausea vomiting or diarrhea. Continues to deny need for increased pain medication. She is aware of having to be here until Wednesday due to [facility] placement. - Constitutional Vitals: Temp Pulse Resp BP Pulse Ox 98.3 F 76 16 145/73 92 02/21/18 11:02/21/18 11:02/21/18 11:02/21/18 11:02/21/18 11:26 General appearance: Present: cooperative, A&O X 3, pleasant, no acute distress, answers questions appropriately - Head Head exam: Present: atraumatic, normal inspection, normocephalic - Eye Eye exam: Present: normal appearance, conjuntiva pink, sclera anicteric - Neck Neck exam general surgery: Present: supple, trachea midline. Absent: lymphadenopathy, tenderness - Respiratory Respiratory exam: Present: CTAB. Absent: accessory muscle use, decreased breath sounds, rales, rhonchi, wheezes - Cardiovascular Cardiovascular exam: Present: RRR, +S1, +S2. Absent: diastolic murmur, gallop, rubs, systolic murmur - GI/Abdominal GI/Abdominal exam: Present: normal bowel sounds, soft. Absent: distended, hepatomegaly, tenderness - Extremities Exam Extremities exam: Present: pedal edema, warm, radial pulses palpable and symmetrical. Absent: calf tenderness, cyanotic, tenderness - Neurological Exam Neurological exam: Present: alert, oriented X3, no focal deficits. Absent: facial droop, speech deficit - Skin Skin exam: Present: dry, intact, normal color, warm. Absent: rash Internal Medicine: Result - Labs CBC & Chem 7: 02/21/18 06:39 02/21/18 06:39 Labs: Short CBC 02/21/18 Range/Units 06:39 WBC 9.6 (4.3-11.1) K/mcL Hgb 12.6 (11.5-15.4) g/dL Hct 38.3 (35.3-44.9) % Plt Count 302 (140-400) K/mcL Neutrophils # 6.4 (1.6-8.9) K/mcL BMP 02/21/18 06:39 Sodium 139 Potassium 3.6 Chloride 107 Carbon Dioxide 28 BUN 15 Creatinine 0.54 L Glucose 108 H Calcium 8.2 L - ABG Interpretation ABG results: PT/INR, D-dimer PT 15.6 Seconds (9.4-12.1) H 02/17/18 14:28 - VTE Documentation of Mechanical Device: Intermittent pneumatic compression device Consult Discharge Plan - Plan Referrals: NONE,PCP [Primary Care Provider] - Prescriptions: OxyCODONE/APAP 5/325 [Percocet 5/325 MG] 1 each PO Q6HR PRN 3 Days #10 tablet PRN Reason: Pain Docusate [Colace] 100 mg PO BID #60 capsule levoFLOXacin [Levaquin] 500 mg PO DAILY #7 tablet
[2018-02-21] MEDS ORDERED: Furosemide 20 MG/2 ML VIAL IVP ONE (22:47)
[2018-02-22] MEDS ORDERED: Cholecalciferol (D-3) 1,000 UNIT TABLET PO SCH (09:00)
[2018-02-22] MEDS ORDERED: Multivit/Ca/Min/Fe/FA 1 TAB TABLET PO SCH (09:00)
[2018-02-22] MEDS: levoFLOXacin 500 MG TABLET PO SCH (10:05)
[2018-02-22] MEDS: Potassium Chloride Elixir 20 MEQ/15 ML UDC PO SCH (10:06)
[2018-02-22 10:56] VITALS: BP 125/79
--- NOTE | 2018-02-22 14:22 | Discharge Summary ---
Date of Encounter: 02/22/18 Time of Encounter: 14:13 - Discharge Diagnosis (1) Acute cholecystitis Priority: Primary Status: Acute Assessment and Plan: presented with abdominal pain. Gallbladder ultrasound showed distended gallbladder with multiple stones as well as gallbladder wall thickening concerning for acute cholecystitis. HIDA scan consistent with acute obstruction of the cystic duct or acute cholecystitis per general surgery. Patient did not want surgical intervention due to risk of the patient and/or prolonged mechanical ventilation therefore cholecystectomy was not performed. Cholecystostomy tube was commended per general surgery. S/p cholecystostomy tube placement on 02/17/2018 per IR. Cholecystostomy tube is permanent. Follow- up with General Surgery PRN (2) UTI (urinary tract infection) Priority: Primary Status: Acute Assessment and Plan: UA indicative of UTI. Urine culture with pansensitive pseudomonas. Asymptomatic, completed 3 day course of IV Levaquin. Qualifiers: Urinary tract infection type: site unspecified Hematuria presence: without hematuria Qualified Code(s): N39.0 - Urinary tract infection, site not specified (3) Hypertension Priority: Secondary Status: Chronic Assessment and Plan: per hx. BP variable but acceptable. Cont home BP medication. BP can be monitored at [facility]. Qualifiers: Hypertension type: essential hypertension Qualified Code(s): I10 - Essential (primary) hypertension (4) Renal stone Priority: Primary Status: Acute Assessment and Plan: ABD CT with bilateral renal pelvis stones likely causing some obstruction indicated by hydronephrosis. Evaluated by urology who recommended ureteral stents however he should not declining at this time. Urology noted increase risk for urosepsis without stent placement. Patient is aware of increase risk and prefers conservative management. No need to follow-up with urology unless symptoms worsen or patient decides to proceed with ureteral stents. (5) Hydronephrosis Priority: Primary Status: Acute Assessment and Plan: Plan as above Qualifiers: Hydronephrosis type: with renal calculous obstruction Qualified Code(s): N13.2 - Hydronephrosis with renal and ureteral calculous obstruction (6) Leg swelling Priority: Primary Status: Chronic Assessment and Plan: chronic. Cont home lasix Hospital course: Please see assessment and plan for Hospital course Discharge discussed with: patient (Seen and examined at bedside. Patient is new to me, information obtained from chart review and patient report. Patient says she feels about the same. No abdominal pain. No dysuria. Has some lower extremity edema but she says that is chronic and at her baseline. She is aware of plan to discharge to [facility] is happening.) - Time Spent with Patient Total time spent providing and/or coordinating discharge services: - Discharge Medications Prescriptions: OxyCODONE/APAP 5/325 [Percocet 5/325 MG] 1 each PO Q6HR PRN 3 Days #10 tablet PRN Reason: Pain Docusate [Colace] 100 mg PO BID #60 capsule Home Medications: Ca/D3/Mag#11/Zinc/Business Center Representative/Braden/Bor [Caltrate 600+D Plus Tablet] 1 each PO BID [History] Ergocalciferol (VITAMIN D2) [Vitamin D] 400 unit PO DAILY 09/16/16 [History] Acetaminophen [Tylenol] 650 mg PO Q6HR PRN tablet 02/19/18 [Rx] Docusate [Colace] 100 mg PO BID #60 capsule 02/19/18 [Rx] Furosemide [Lasix] 20 mg PO DAILY PRN tablet 02/19/18 [Rx] Ondansetron [Zofran] 4 mg IVP Q6H PRN vial 02/19/18 [Rx] OxyCODONE/APAP 5/325 [Percocet 5/325 MG] 1 each PO Q6HR PRN 3 Days #10 tablet [Rx] Allergies/Adverse Reactions: 3 Allergy/AdvReac Type Severity Reaction Status Date / Time bacitracin Allergy Hives Verified 09/16/16 10:29 [From Neosporin ([id number])] Neomycin Allergy Hives Verified 09/16/16 10:29 [From Neosporin ([id number])] Penicillins Allergy Hives Verified 09/16/16 10:29 polymyxin B Allergy Hives Verified 09/16/16 10:29 [From Neosporin ([id number])] Sulfa (Sulfonamide Allergy SWELLING Verified 09/16/16 10:29 Antibiotics) Tetracycline AdvReac FAINTED Verified 09/16/16 10:29 Date of admission: 02/16/18 06:53 Primary care physician: PCP NONE Consults: 02/17/18 14:11 Consult to Interventional Radiology [CONS] Routine Consulting Provider: Radiology Interventional Cols Reason for Consult: Consult Time Notified: 14:11 Call Completed: Yes 02/18/18 09:11 Consult to Credentialing Coordinator [CONS] Routine Reason for SW Consult: patient from [facility] through [facility]. Unsure where they will admit her to after D/C> Patient bed bound per her decision. Refused therapy in the past at [facility]. 02/22/18 11:45 Consult to Wound Care [CONS] Routine Reason for Consult: Pressure injury to left scapula Call Completed: No Discharging clinician: Adelita Abreu Anticipated date of discharge: 02/22/18 - Constitutional Vitals: Temp Pulse Resp BP Pulse Ox 97.6 F 86 15 125/79 94 02/22/18 10:52 02/22/18 10:52 02/22/18 10:52 02/22/18 10:52 02/22/18 10:52 General appearance: Present: cooperative, A&O X 3, morbidly obese, pleasant, no acute distress, answers questions appropriately - Head Head exam: Present: atraumatic, normocephalic - Eye Eye exam: Present: PERRL, conjuntiva pink, sclera anicteric Pupils: Present: PERRL - Neck Neck exam general surgery: Present: supple, trachea midline. Absent: lymphadenopathy - Respiratory Respiratory exam: Present: CTAB. Absent: accessory muscle use, rales, rhonchi, wheezes - Cardiovascular Cardiovascular exam: Present: RRR, +S1, +S2. Absent: diastolic murmur, gallop, rubs, systolic murmur - GI/Abdominal GI/Abdominal exam: Present: normal bowel sounds, soft, no peritoneal signs. Absent: distended, tenderness Additional comments: RUQ ABD drain - Extremities Exam Extremities exam: Present: pedal edema, warm, radial pulses palpable and symmetrical. Absent: calf tenderness, cyanotic - Neurological Exam Neurological exam: Present: CN II-XII intact, oriented X3, no focal deficits. Absent: pronater drift, facial droop, speech deficit - Skin Skin exam: Present: dry, intact - Patient Status Disposition: Transfer SNF Condition: Fair Functional capacity at discharge: bed bound Overall status at discharge: patient is progressing back to baseline - Discharge Instructions Follow Up With: NONE,PCP [Primary Care Provider] - Additional Instructions: Cleanse CARLOS drain insertion site with sterile 0.9 normal saline daily. Pat dry. Secure with split 4 x 4's and reinforce with tape. Change daily and PRN soiled/dislodgment. Empty CARLOS drain daily and as needed - Diet and Activity Activity: as per physical therapy Diet: low fat, low cholesterol - VTE Documentation of Mechanical Device: Intermittent pneumatic compression device
--- NOTE | 2018-02-22 14:39 | Physician Discharge Referral ---
ExtendedCare Referral Info Transfer To: [facility] Provider in Charge: Adelita Abreu CNP Provider in Charge after Transfer: PCP Institutional Level of Care: Skilled - Diagnosis (1) Acute cholecystitis Status: Acute (2) UTI (urinary tract infection) Status: Acute (3) Hypertension Status: Chronic (4) Renal stone Status: Acute (5) Hydronephrosis Status: Acute (6) Leg swelling Status: Chronic - Transfer Medications Prescriptions: OxyCODONE/APAP 5/325 [Percocet 5/325 MG] 1 each PO Q6HR PRN 3 Days #10 tablet PRN Reason: Pain Docusate [Colace] 100 mg PO BID #60 capsule Home Medications: Ca/D3/Mag#11/Zinc/Material Attendant/Braden/Bor [Caltrate 600+D Plus Tablet] 1 each PO BID [History] Ergocalciferol (VITAMIN D2) [Vitamin D] 400 unit PO DAILY 09/16/16 [History] Acetaminophen [Tylenol] 650 mg PO Q6HR PRN tablet 02/19/18 [Rx] Docusate [Colace] 100 mg PO BID #60 capsule 02/19/18 [Rx] Furosemide [Lasix] 20 mg PO DAILY PRN tablet 02/19/18 [Rx] Ondansetron [Zofran] 4 mg IVP Q6H PRN vial 02/19/18 [Rx] OxyCODONE/APAP 5/325 [Percocet 5/325 MG] 1 each PO Q6HR PRN 3 Days #10 tablet [Rx] Allergies/Adverse Reactions: 3 Allergy/AdvReac Type Severity Reaction Status Date / Time bacitracin Allergy Hives Verified 09/16/16 10:29 [From Neosporin ([id number])] Neomycin Allergy Hives Verified 09/16/16 10:29 [From Neosporin ([id number])] Penicillins Allergy Hives Verified 09/16/16 10:29 polymyxin B Allergy Hives Verified 09/16/16 10:29 [From Neosporin ([id number])] Sulfa (Sulfonamide Allergy SWELLING Verified 09/16/16 10:29 Antibiotics) Tetracycline AdvReac FAINTED Verified 09/16/16 10:29 - Respiratory Orders Oxygen / L per min (2 liters PRN to maintain oxygen saturation 92% or greater) Smoking Cessation: Smoking cessation has been advised. For more information, call the [place] Tobacco Quit Line at 9-997-PDTW-NOW. - Advance Directives Code Status: DNR-Arrest/Don't Intubate - Mobility Orders Bedrest - Rehabiliation Orders Rehab Potential: Poor Rehab Orders: Evaluation for Physical Therapy, Evaluation for Occupational Therapy - Treatments List/Other: Daily CARLOS drain care - Diet Orders Regular CERTIFICATION: I certify that the transfer of the above named patient to an Extended Care Facility is necessary for the continuing treatment of the diagnosis listed. The above information is true and accurate reflection of patient's current condition. Confidential - Redisclosure prohibited without a patient's written consent.
== END 2018-02-22 16:49 | DRG 445 ==
LOC: EMEROO 03:08 → 2SOUTHHOLD 06:53 → 3BNU 19:00
PROVIDERS: ADMIT Internal Medicine; ATTEND Internal Medicine
PROC: IRDRAIN (2018-02-17 14:30)